=== PATIENT | female | born 1960 | race Caucasian/White ===

== ENCOUNTER 2018-08-22 09:18 | Inpatient (IN) ==
[2018-08-22 10:14] LABS: Basophils # 0.1 K/mcL (0.0-0.2); Basophils % 0.8 %; Eosinophils # 0.1 K/mcL (0.0-0.6); Eosinophils % 0.7 %; Hematocrit 45.3 % (35.3-44.9); Hemoglobin 15.2 g/dL (11.5-15.4); Immature Granulocytes % 0.8 % (0-4); Lymphocytes # 1.7 K/mcL (0.6-4.6); Lymphocytes % 10.7 %; Mean Corpuscular HGB Conc 33.6 g/dL (31.6-35.5); Mean Corpuscular Hemoglobin 32.3 pg (28.0-33.3); Mean Corpuscular Volume 96.2 fL (83.0-100.0); Mean Platelet Volume 9.8 fL (9.4-12.4); Monocytes # 0.7 K/mcL (0.0-1.3); Monocytes % 4.4 %; Neutrophils # 12.9 K/mcL (1.6-8.9); Platelet Count 265 K/mcL (140-400); Red Blood Count 4.71 M/mcL (3.82-4.97); Red Cell Distribution Width 13.5 % (11.5-14.5); Segmented Neutrophils % 82.6 %
[2018-08-22 10:36] LABS: BUN/Creatinine Ratio 24 (6-26); Blood Urea Nitrogen 22 mg/dL (6-20); Calcium 9.4 mg/dL (8.6-10.3); Carbon Dioxide 26 mEq/L (23-29); Chloride 107 mEq/L (98-107); Glucose 133 mg/dL (70-105); Magnesium 2.1 mg/dL (1.6-2.6); Osmolality,Calculated 291 (280-300); Potassium 4.1 mEq/L (3.5-5.1); Sodium 138 mEq/L (136-145); eGFR For Non-African Americans > 60 (> 60)
[2018-08-22 10:37] LABS: Troponin I < 0.03 ng/mL (< 0.04)
--- NOTE | 2018-08-22 10:42 | Emergency Department Note ---
Disposition Clinical Impression: Left-sided weakness, History of CVA (cerebrovascular accident), Weakness, Diplopia Disposition: Admitted As Inpatient Condition: Fair Time of Disposition: 14:37 Neuro HPI - General Chief Complaint: ED Neuro Symptoms/Deficit Stated Complaint: weakness Time Seen by Provider: 08/22/18 09:26 Source: patient Mode of arrival: ambulatory Limitations: no limitations Nursing Notes Reviewed: Yes Vital Signs Reviewed: Yes - History of Present Illness HPI Narrative: 57-year-old female process the emergency department complaining of left-sided numbness and weakness that comes and goes as well as diplopia that comes and goes. She also noticed that she seems to be walking to the right whenever she is walking which is new. Said all this started about 2 days ago and is coming and going randomly. There is no noticeable times at this is worse. She says at this time the numbness seems completely resolved as well as the weakness and the diplopia is completely resolved. She says the diplopia seems like she seeing double but then will go away it only occurs for about one or 2 minutes then completely goes away. Her vision is normal and not blurry otherwise. She was seen her primary care physician who recommended she come here immediately due to the weakness and her history. Patient says she did have a stroke in the previous but had no deficits and has been well ever since. Patient is not diabetic she has had a heart attack back in had a stent placed had no problems since then. Only takes a baby aspirin otherwise no other recent falls or blood thinner use. Patient otherwise having no complaints at this time. Including no headache, blurry vision, neck pain, back pain, fever, chills, nausea, vomiting, chest pain, short of breath, abdominal pain, changes in balance, pain with urination, loss of bladder or bowel, pain or tingling going down the arms or legs or generalized weakness. - Related Data Home Medications: Home Medications Medication Instructions Recorded Confirmed RX: ARIPiprazole [Abilify] 5 mg PO DAILY 06/07/15 06/07/15 RX: Aspirin/Acetaminophen/Caffeine 1 each PO Q4H PRN 06/07/15 06/07/15 [Excedrin Extra Strength Caplet] RX: Duloxetine HCl [Cymbalta] 60 mg PO DAILY 06/07/15 06/07/15 RX: Gabapentin [Neurontin] 900 mg PO TID 06/07/15 06/07/15 RX: Levothyroxine [Synthroid] 125 mcg PO DAILY 06/07/15 06/07/15 RX: Propranolol LA (24 HR) 60 mg PO DAILY PRN 06/07/15 06/07/15 [Inderal LA] RX: Temazepam [Restoril] 15 mg PO HS PRN 06/07/15 06/07/15 RX: Verapamil ER (24 HR) [Calan SR] 240 mg PO DAILY 06/07/15 06/07/15 Previous Rx's Medication Instructions Recorded Oxycodone HCl/Acetaminophen 1 each PO Q4H PRN #20 tablet 06/07/15 [Percocet 5-325 mg Tablet] Allergies/Adverse Reactions: Allergies Allergy/AdvReac Type Severity Reaction Status Date / Time No Known Allergies Allergy Verified 06/07/15 13:21 All systems ED: reviewed and negative except as stated. Review of Systems: As Per HPI Past Medical History - Past Medical History Attestation: Yes The following information was validated with the patient. Source: patient Medical history: Reports: hypertension, migraine, thyroid disease Surgical history: Reports: hysterectomy, thyroidectomy Psychiatric history: Reports: depression HOT BOX CHECKER history: Reports: no HOT BOX CHECKER history - Social History Smoking Status: Current every day smoker Smokeless Tobacco Status: No Alcohol use: Reports: none Drug use: Reports: none Physical Exam - General Limitations: no limitations General appearance: alert, in no apparent distress - Head Head exam: atraumatic, normocephalic, normal inspection - Eye Eye exam: Present: normal appearance, PERRL, EOMI - ENT ENT exam: normal exam, normal oropharynx, mucous membranes moist - Neck Neck exam: Present: normal inspection, full ROM, trachea midline - Chest Chest inspection: Present: normal inspection, symmetric chest wall rise - Respiratory Respiratory exam: Present: normal lung sounds bilaterally - Cardiovascular Cardiovascular exam: Present: regular rate, normal rhythm, normal heart sounds - Abdominal Exam Abdominal exam: Present: soft, Non-Tender. Absent: tenderness, distention, guarding, rebound, rigidity - Extremities Exam Extremities exam: Present: normal inspection, full ROM. Absent: tenderness, pedal edema - Expanded Lower Extremity Exam Neurovascular/Tendon exam: Present: normal capillary refill. Absent: pulse deficit, motor deficit, sensory deficit, tendon deficit - Back Exam Back exam: Present: normal inspection, full ROM. Absent: tenderness, CVA tenderness (R), CVA tenderness (L) - Neurological Exam Neurological exam: Present: alert, oriented X3 - Skin Skin exam: Present: warm, dry, intact, normal color Course Course Narrative: Patient here with weakness complaints. On exam there is no acute findings no neurological weaknesses NIH scale is 0 at this time. She has no complete or pain or weakness at this time diplopia is completely resolved as well. 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 We will get CT of the head as well as give patient aspirin and get basic labs including CBC, BMP, magnesium, chest x-ray and EKG. Patient okay with this plan. Disposition most likely will be admission for further evaluation. Vital Signs Temperature 98.5 F 08/22/18 09:20 Pulse Rate 62 08/22/18 09:20 Respiratory Rate 16 08/22/18 09:20 Blood Pressure 157/101 08/22/18 09:20 O2 Sat by Pulse Oximetry 97 08/22/18 09:20 Temperature 98.5 F 08/22/18 09:26 Pulse Rate 62 08/22/18 09:26 Respiratory Rate 16 08/22/18 12:58 Blood Pressure 150/98 08/22/18 12:58 O2 Sat by Pulse Oximetry 97 08/22/18 09:26 Oxygen Delivery Oxygen Delivery Room Air Neuro Symptoms/Deficit - MDM Narrative Medical decision making narrative: Patient presented here with neurological symptoms NIH was 0. On exam. Patient did have some weakness along the left side this all resolved when on for 2 days so an acute stroke was not fall called at this time. We did not do a stroke alert. Patient did have CT scan of the head done which came back with no acute abnormalities. After looking at her chart previously she did have history of hemorrhagic stroke so we did consult with neurology they recommended doing MR of the head as well as MRA of the neck. And they also recommended aspirin and admission. I spoke with the hospitalist Dr. Sharma who agreed to admit the patient to their service. Patient's admitted in stable condition. All labs otherwise were within normal limits family updated okay with the plan. Head CT 08/22/18 09:48 IMPRESSION: No acute intracranial abnormality. Stable small-vessel disease ischemic changes which was previously seen. D/ / 08/22/2018 11:00:59 Jennifer Palmer MD / [facility] Interpreting Provider: Jennifer Palmer MD Chest X-Ray 08/22/18 09:49 IMPRESSION: Negative portable chest x-ray. No evidence of acute cardiopulmonary disease. D/ / Luis Kenney MD / Luis Kenney MD Interpreting Provider: Luis Kenney MD - Medical Records Medical records reviewed: Yes I reviewed the patient's medical records. - Lab Data Lab results reviewed: Yes I reviewed the patient's lab results. Result diagrams: 08/22/18 10:04 08/22/18 10:04 Lab Results 08/22/18 08/22/18 08/22/18 Range/Units 10:04 10:04 11:08 WBC 15.6 H (4.3-11.1) K/mcL RBC 4.71 (3.82-4.97) M/mcL Hgb 15.2 (11.5-15.4) g/dL Hct 45.3 H (35.3-44.9) % MCV 96.2 (83.0-100.0) fL MCH 32.3 (28.0-33.3) pg MCHC 33.6 (31.6-35.5) g/dL RDW 13.5 (11.5-14.5) % Plt Count 265 (140-400) K/mcL MPV 9.8 (9.4-12.4) fL Immature Gran % 0.8 (0-4) % Seg Neutrophils % 82.6 % Lymphocytes % 10.7 % Monocytes % 4.4 % Eosinophils % 0.7 % Basophils % 0.8 % Neutrophils # 12.9 H (1.6-8.9) K/mcL Lymphocytes # 1.7 (0.6-4.6) K/mcL Monocytes # 0.7 (0.0-1.3) K/mcL Eosinophils # 0.1 (0.0-0.6) K/mcL Basophils # 0.1 (0.0-0.2) K/mcL Sodium 138 (136-145) mEq/L Potassium 4.1 (3.5-5.1) mEq/L Chloride 107 (98-107) mEq/L Carbon Dioxide 26 (23-29) mEq/L BUN 22 H (6-20) mg/dL Creatinine 0.90 (0.60-1.20) mg/dL Est GFR ( Amer) > 60 (> 60) Est GFR (Non-Af Amer) > 60 (> 60) BUN/Creatinine Ratio 24 (6-26) Glucose 133 H (70-105) mg/dL Calculated Osmolality 291 (280-300) Calcium 9.4 (8.6-10.3) mg/dL Magnesium 2.1 (1.6-2.6) mg/dL Troponin I < 0.03 (< 0.04) ng/mL Urine Color Yellow (Yellow) Urine Clarity Clear (Clear) Urine pH 7.5 (5.0-8.0) pH Units Ur Specific [place] 1.025 (1.010-1.025) Urine Protein Trace (Neg-Trace) mg/dL Urine Glucose (UA) Normal (Normal) mg/dL Urine Ketones Negative (Negative) mg/dL Urine Blood Negative (Negative) Urine Nitrite Negative (Negative) Urine Bilirubin Negative (Negative) Urine Urobilinogen Normal (Normal) mg/dL Ur Leukocyte Esterase Negative (Negative) Urine Microscopic RBC 0-3 (0-3) per hpf Urine Microscopic WBC 0-3 (0-3) per hpf Ur Squamous Epith Cells Many H (None-Few) per lpf Urine Bacteria Few (None-Few) per hpf Hyaline Casts None Seen (None-Few) per lpf Ur Culture Indicated? NO (NO) - Radiology Data Radiology results reviewed: Yes I reviewed the patient's radiology results. - EKG Data EKG attestation: Yes I reviewed and interpreted this EKG. EKG results narrative: EKG done at 0 929 review myself and attending shows sinus rhythm at a rate of 60, NJ interval 174, QRS 104, QTc 425. Is no acute ST changes no acute T-wave changes no other signs of ischemia. No signs of hypertrophy, heart and, heart block. No W BW/Brugada/HOCM. EKG is unchanged when compared with old one done 08/22/18. NIH Stroke Scale - Level of Consciousness LOC: Alert - LOC Questions LOC Questions: Answers both correctly - LOC Commands LOC Commands: Performs both correctly - Best Gaze Best Gaze: Normal - Visual Visual: No visual loss - Facial Palsy Facial Palsy: Normal - Motor Arms Motor Arm-Left: No drift for 10 seconds Motor Arm-Right: No drift for 10 seconds - Motor Legs Motor Leg-Left: No drift for 5 seconds Motor Leg-Right: No drift for 5 seconds - Limb Ataxia Limb Ataxia: Absent of affected limb too weak to perform exam - Sensory Sensory: Normal - Best Language Best Language: No aphasia - Dysarthria Dysarthria: Normal - Extinction and Inattention Extinction and Inattention: Normal - NIHSS Total Score NIHSS Total Score: 0 TPA Checklist - LKW: 3-4.5 hrs Add. Warnings/Precautions Patient/family understanding: The patient/family members have been counseled and understood the risk, benefit, and alternatives of treatment.
[2018-08-22 11:23] LABS: Bilirubin,Urine Negative (Negative); Blood,Urine Negative (Negative); Clarity,Urine Clear (Clear); Color,Urine Yellow (Yellow); Glucose,Urine (UA) Normal (Normal); Ketones,Urine Negative (Negative); Leukocyte Esterase,Urine Negative (Negative); Nitrite,Urine Negative (Negative); PH,Urine 7.5 pH Units (5.0-8.0); Protein,Urine Trace mg/dL (Neg-Trace); Specific Gravity,Urine 1.025 (1.010-1.025); Urobilinogen,Urine Normal (Normal)
[2018-08-22 11:49] LABS: Bacteria,Urine Few per hpf (None-Few); Hyaline Casts,Urine None Seen per lpf (None-Few); RBC,Urine 0-3 per hpf (0-3); Squamous Epithelial Cell,Urine Many per lpf (None-Few); WBC,Urine 0-3 per hpf (0-3)
[2018-08-22] MEDS ORDERED: Aspirin 325 MG TABLET PO ONE (11:57)
--- NOTE | 2018-08-22 12:26 | Neurology - Consult Note ---
Date of Encounter: 08/22/18 Time of Encounter: 12:23 Assessment and Plan (1) Diplopia Current Visit: Yes Status: Acute This patient apparently had a history of hemorrhagic stroke in the past without any residual deficit Came in for 2-3 days history of double vision as well as right arm numbness and paresthesias as well as difficulty with the walking and difficulty with a gait and balance. No significant focal findings on neurological examination today but certainly is a possibility that she could have a new lacunar infarct. Patient would require stroke workup including MRI of the brain but at the same time also suggest getting an MRA of the head and neck to make sure there is no posterior circulation stenosis At the same time she would be on aspirin 325 mg daily depending on MRI results and make further recommendations certainly she would need all stroke workup including echocardiogram as well as at the same time continue to monitor her bl ood pressure and blood sugar She would also benefit from physical therapy recommendations Considering this new onset of the symptoms also suggested check for other metabolic abnormalities in particularly for vitamin B12 folate acid as well as thyroid dysfunction and other metabolic panel to make sure there is no other metabolic etiologies of her symptoms (2) History of CVA (cerebrovascular accident) Current Visit: Yes Status: Acute History of Present Illness HPI: Ms. Osullivan is a 57 year old female 57-year-old female process the emergency department complaining of left-sided numbness and weakness that comes and goes as well as diplopia that comes and goes. She also noticed that she seems to be walking to the right whenever she is walking which is new. Said all this started about 2 days ago and is coming and going randomly. There is no noticeable times at this is worse. She says at this time the numbness seems completely resolved as well as the weakness and the diplopia is completely resolved. She says the diplopia seems like she seeing double but then will go away it only occurs for about one or 2 minutes then completely goes away. Her vision is normal and not blurry otherwise. She was seen her primary care physician who recommended she come here immediately due to the weakness and her history. Patient says she did have a stroke in the previous but had no deficits and has been well ever since. Patient is not diabetic she has had a heart attack back in had a stent placed had no problems since then. Past Med Surg Social Fam HX - Past Medical History Medical history: hypertension, migraine, thyroid disease Psychiatric history: depression - Past Surgical History Surgical History: hysterectomy, thyroidectomy Additional surgical history: Cardioangioplasty, bladder sling - Social History Smoking Status: Current every day smoker Smokeless Tobacco Status: No Alcohol use: none Drug use: none - Family History Mother Living Status: Age at : 74 Cause of : Cancer Hx Family Cardiac Disorders: Yes Hx Family Cancer: Yes (Lung, throat) Medications and Allergies Acetaminophen [Tylenol] 650 mg PO BID PRN 08/22/18 [History] Amitriptyline [Elavil] 25 mg PO HS 08/22/18 [History] Duloxetine HCl [Cymbalta] 60 mg PO DAILY 08/22/18 [History] Levothyroxine Sodium [Levo-T] 50 mcg PO DAILY 08/22/18 [History] Metoprolol Tartrate 100 mg PO BID 08/22/18 [History] Naproxen [Naprosyn] 750 mg PO QID PRN 08/22/18 [History] Verapamil ER (24 HR) [Calan SR] 240 mg PO DAILY 08/22/18 [History] Allergy/AdvReac Type Severity Reaction Status Date / Time No Known Allergies Allergy Verified 08/22/18 15:34 All Systems: The remainder of the systems were reviewed and are negative Physical Examination - Vital Signs Vital Signs: Initial Vital Signs Temp Pulse Resp BP Pulse Ox 98.5 F 62 16 157/101 97 08/22/18 09:20 08/22/18 09:20 08/22/18 09:20 08/22/18 09:20 08/22/18 09:20 - Exam Exam: GENERAL: Comfortable in no acute distress HEENT: Normal LUNGS: CTA HEART: RRR, S1 S2 Audible, no murmur EXTREMITIES: No Pedal edema. DETAILED NEUROLOGICAL EXAMINATION: MENTAL STATUS: Oriented to person, place, date and situation. Memory: knows the President, Aware of recent events Recent Memory Intact, Attention span is normal Cranial Nerve Examination: CN - II: Visual Acuity, Field of Vision Normal, Fundus examination: No disk edema, Pupils- size shape reaction to light and accommodation: All normal. CN III, IV, : External ocular movements were intact, Pupils were reactive, Nodrooping of the eyelids CN V: Sensation over the face to light touch and pinprick all normal. Corneal reflexes not tested, jaw jerk normal. CN VII: ,Mild l=right facial asymmetry, no flattening of nasolabial folds, no difficulty in closing the eyes, no loss of forehead wrinkles, no difficulty in eye- closure, frowning raising eyebrows. CNVIII: No significant hearing loss CN IX, X: Uvula centralized not deviated, Gag reflex: Not tested CN X1: Sternocleidomastoid, trapezius, normal or evidence of any weakness. CN X11: No Dysarthria, no wasting or fibrilation f tongue muscles, no deviation, tongue muscle strength normal. Motor examination: No hypertrophy, tone was normal, power grade 0-5 Upper limbs Proximal- No difficulty in lifting the arms above the head. Distal- No weakness in distal muscles On formal testing 4/4right upper Lower limbs On formal testing 4/4right lower r Coordination: [id number] normal. Target pursuit normal finger tapping normal, Rapid alternating moment of wrist normal Sensory system: Superficial sensations- Touch normal. Pain- Pinprick, Temperature all normal, Deep sensation normal, Joint position sense normal. Cortical sensation, Tactile discrimination, localization and extinction all normal. Deep tendon reflexes. low on right No evidence of Babinski. No sign of meningeal irritation Gait Examination: Deferred - Constitutional General appearance: comfortable Results - Laboratory Findings CBC and BMP: 08/23/18 04:05 08/23/18 04:05 Abnormal lab findings: Abnormal lab results WBC 15.6 K/mcL (4.3-11.1) H 08/22/18 10:04 Hct 45.3 % (35.3-44.9) H 08/22/18 10:04 Neutrophils # 12.9 K/mcL (1.6-8.9) H 08/22/18 10:04 BUN 22 mg/dL (6-20) H 08/22/18 10:04 Glucose 133 mg/dL (70-105) H 08/22/18 10:04 Ur Squamous Epith Cells Many per lpf (None-Few) H 08/22/18 11:08 Consult Discharge Plan - Plan Referrals: Ludy Bain SEWING MACHINE OPERATOR [employer]UT[employer] [Primary Care Provider] - 08/27/18 10:30 am
[2018-08-22] MEDS ORDERED: Acetaminophen 325 MG TABLET PO PRN (14:07)
[2018-08-22] MEDS ORDERED: Naloxone 0.4 MG/ML INJ IVP PRN (14:07)
[2018-08-22] MEDS ORDERED: *HR* LORazepam 0.5 MG TABLET PO ONE (14:28)
[2018-08-22 14:44] LABS: Prothrombin Time 11.2 Seconds (9.4-12.1)
--- NOTE | 2018-08-22 15:44 | Internal Med History&Physical ---
Date of Encounter: 08/22/18 Time of Encounter: 14:00 Internal Medicine - H&P: HPI Chief complaint: diplopia Admitted From: Home Plans for Post Hospital Care: Home History of present illness: Ms. Osullivan is a 57 year old female with history of hypertension, migraine, hypothyroidism and history of hemorrhagic stroke in the past without any residual deficit presented o [facility] ED with double vision. she reports that her double vision started jamarcus day before admission but she went to sleep as she thought it was due to being tired however woke up the next morning adn decided to come to the ED. she reports that her double vision has remained constant, not associated with dizziness, vision loss, N/V. she denies recent eye trauma or head trauma. has never had symptoms like this before. she also reports difficulty walking, right arm numbness and paresthesia since 2 days before admission. family at bedside also reports that they noticed a right sided facial droop and slurred speech. she denies fever, chills, recent URTI, falls, headache, N/v/d, loss of function in her extremities. in [facility] ED Ct head did not show any acute stroke, she was given ASA 325 mg and neurology was consulted and was admitted to medicine for further evaluation. Past Med Surg Social Fam HX - Past Medical History Medical history: hypertension, migraine, thyroid disease Psychiatric history: depression - Past Surgical History Surgical History: hysterectomy, thyroidectomy Additional surgical history: Hernia repair x 4. - Social History Smoking Status: Current every day smoker Packs per day: 1- 1 1/2 Smokeless Tobacco Status: No Alcohol use: none Drug use: none - Family History Mother Living Status: Age at : 74 Cause of : Cancer Hx Family Cardiac Disorders: Yes Hx Family Cancer: Yes (Lung, throat) Internal Medicine - H&P: Meds Acetaminophen [Tylenol] 650 mg PO BID PRN 08/22/18 [History] Amitriptyline [Elavil] 25 mg PO HS 08/22/18 [History] Duloxetine HCl [Cymbalta] 60 mg PO DAILY 08/22/18 [History] Levothyroxine Sodium [Levo-T] 50 mcg PO DAILY 08/22/18 [History] Metoprolol Tartrate 100 mg PO BID 08/22/18 [History] Naproxen [Naprosyn] 750 mg PO QID PRN 08/22/18 [History] Verapamil ER (24 HR) [Calan SR] 240 mg PO DAILY 08/22/18 [History] Allergy/AdvReac Type Severity Reaction Status Date / Time No Known Allergies Allergy Verified 08/22/18 15:34 All Systems PM: A 10-system review of systems was performed and is negative for pertinent findings except as documented above in the HPI. - Constitutional Vitals: Temp Pulse Resp BP Pulse Ox 98.5 F 62 16 150/98 97 08/22/18 09:26 08/22/18 09:26 08/22/18 12:58 08/22/18 12:58 08/22/18 09:26 Exam: General: Patient is alert, oriented, no acute distress, obese Head: atraumatic, normocephalic, Eye: normal appearance, PERRL, no scleral icterus, no conjunctival injection ENT: mucous membranes moist, normal external ear exam Neck: normal inspection, trachea midline, full ROM, no carotid bruits Chest: normal inspection, symmetric chest rise Respiratory: Good respiratory effort. Bilateral breath sounds are clear without wheezing, crackles, or rhonchi. Cardiovascular: Regular rate and rhythm. s1 and s2 No clicks, rubs, gallops, or murmors. Abdomen: Bowel sounds present normoactive x-4 quadrants. Abdomen is soft, n ondistended. no Epigastric tenderness. No guarding or rebound. No organomegaly noted, obese musculoskeletal: Spontaneously moving all extremities. no edema, no calf tenderness Skin: warm, dry, intact. Neuro: Alert and oriented x3, strength is 5/5 in all extremities, pronator drift negative, mild slurred speech, heel to chin intact, rapid hand movement intact, tongue midline, coud not appreciate facial droop. Psych: Patient's affect is normal Internal Med - H&P Results - Labs CBC & Chem 7: 08/22/18 10:04 08/22/18 10:04 Labs: Short CBC 08/22/18 Range/Units 10:04 WBC 15.6 H (4.3-11.1) K/mcL Hgb 15.2 (11.5-15.4) g/dL Hct 45.3 H (35.3-44.9) % Plt Count 265 (140-400) K/mcL Neutrophils # 12.9 H (1.6-8.9) K/mcL BMP 08/22/18 10:04 Sodium 138 Potassium 4.1 Chloride 107 Carbon Dioxide 26 BUN 22 H Creatinine 0.90 Glucose 133 H Calcium 9.4 Cardiac Enzymes 08/22/18 Range/Units 10:04 Troponin I < 0.03 (< 0.04) ng/mL Urine 08/22/18 Range/Units 11:08 Urine Color Yellow (Yellow) Urine Clarity Clear (Clear) Urine pH 7.5 (5.0-8.0) pH Units Ur Specific [place] 1.025 (1.010-1.025) Urine Protein Trace (Neg-Trace) mg/dL Urine Glucose (UA) Normal (Normal) mg/dL - EKG Data -: EKG Interpreted by Myself (was unable to locate admission EKG - will obtain new one ) - Impressions ITS Impressions Head CT 08/22/18 09:48 IMPRESSION: No acute intracranial abnormality. Stable small-vessel disease ischemic changes which was previously seen. D/ / 08/22/2018 11:00:59 Jennifer Palmer MD / [facility] [place] Interpreting Provider: Jennifer Palmer MD Chest X-Ray 08/22/18 09:49 IMPRESSION: Negative portable chest x-ray. No evidence of acute cardiopulmonary disease. D/ / Luis Kenney MD / Luis Kenney MD Interpreting Provider: Luis Kenney MD - Assessment and plan (1) Diplopia Current Visit: Yes Status: Acute Assessment and plan: ? secondary to CVA neurology on board will follow recs received ASA 325 mg in the ED will follow neurology recs on continuing ASA 325 mg post MRI lipitor 80 mg QHS MRI head and MRA head and neck ordered will follow results TTE with bubble study carotid doppler lipid panel, TSH and A1c in AM Neuro checks as per protocol Keep systolic BP <220 and diastolic BP <120 mmHg Maintain LDL less than 75 PT/OT evaluation fall aspiration seizure precautions tele monitoring DVT prophylaxis (2) Hypothyroidism Current Visit: Yes Status: Acute Assessment and plan: continue home synthroid TSH in AM Qualifiers: Hypothyroidism type: acquired Qualified Code(s): E03.9 - Hypothyroidism, unspecified (3) History of CVA (cerebrovascular accident) Current Visit: Yes Status: Acute Assessment and plan: as per patient she has had hemorrhagic stroke in the past without any residual deficit CT head negative for any acute ICH (4) DVT prophylaxis Current Visit: Yes Status: Acute Assessment and plan: heparin sc - Time Spent With Patient Total time spent is greater than 50% in coordination of care (as documented) at patient's floor/unit and/or counseling patient:
[2018-08-22] MEDS: *HR* Heparin 5,000 UNIT/ML VIAL SQ SCH ×2 (17:35→22:51)
[2018-08-22 19:16] LABS: Amphetamine Screen,Urine Negative ng/mL (Cutoff=1000); Barbiturate Screen,Urine Negative ng/mL (Cutoff=200); Benzodiazepines Screen,Urine Negative ng/mL (Cutoff=200); Cannabinoid Screen,Urine Negative ng/mL (Cutoff = 50); Cocaine Screen,Urine Negative ng/mL (Cutoff= 300); Opiate Screen,Urine Negative ng/mL (Cutoff=300); Phencyclidine Screen,Urine Negative ng/mL (Cutoff=25)
[2018-08-22] MEDS: Metoprolol 100 MG TABLET PO SCH (19:53)
--- NOTE | 2018-08-22 23:49 | Event Note ---
Date of Encounter: 08/22/18 Time of Encounter: 22:50 Alerted by patient's nurse SULEMAN Martinez that patient's MRI results came back and patient and family were requesting the results. MRI showed volume loss with mild chronic white matter microvascular ischemic disease characterized by periventricular white matter signal abnormality. There is a remote infarct within the right occipital-temporal lobe. There is also an acute lacunar infarct within the left medullary on image #7 of series 2. Due to complexity of the MRI results, I did not feel comfortable discussing results with patient and family and alerted the nurse that Neurology should cover these MRI results with the patient and her family and make further recommendations based on them in the a.m. Nurse instructed to monitor pt. and alert me of any adverse changes.
[2018-08-23 04:57] LABS: Basophils # 0.1 K/mcL (0.0-0.2); Eosinophils # 0.2 K/mcL (0.0-0.6); Eosinophils % 2.1 %; Hematocrit 45.4 % (35.3-44.9); Hemoglobin 14.9 g/dL (11.5-15.4); Immature Granulocytes % 0.5 % (0-4); Lymphocytes # 2.5 K/mcL (0.6-4.6); Lymphocytes % 25.1 %; Mean Corpuscular HGB Conc 32.8 g/dL (31.6-35.5); Mean Corpuscular Volume 97.4 fL (83.0-100.0); Mean Platelet Volume 10.1 fL (9.4-12.4); Monocytes # 0.7 K/mcL (0.0-1.3); Monocytes % 7.1 %; Neutrophils # 6.5 K/mcL (1.6-8.9); Platelet Count 243 K/mcL (140-400); Red Blood Count 4.66 M/mcL (3.82-4.97); Red Cell Distribution Width 13.7 % (11.5-14.5); Segmented Neutrophils % 64.2 %
[2018-08-23 05:17] LABS: BUN/Creatinine Ratio 23 (6-26); Blood Urea Nitrogen 21 mg/dL (6-20); Calcium 9.3 mg/dL (8.6-10.3); Carbon Dioxide 24 mEq/L (23-29); Chloride 107 mEq/L (98-107); Chol/HDL Ratio 7.2 (0-4.9); Cholesterol 272 mg/dL (< 200); Glucose 103 mg/dL (70-105); HDL Cholesterol 38 mg/dL (40-59); LDL Cholesterol,Calculated 195 mg/dL (0-99); Osmolality,Calculated 291 (280-300); Phosphorous 3.2 mg/dL (2.7-4.5); Potassium 3.8 mEq/L (3.5-5.1); Sodium 139 mEq/L (136-145); Triglycerides 195 mg/dL (< 150); eGFR For Non-African Americans > 60 (> 60)
--- NOTE | 2018-08-23 05:23 | Electrocardiograph Report ---
[facility] Test Date: 2018-08-22 Pat Name: Jessica Osullivan Department: [id number] Room: 3B43 Gender: F Nurse [facility] Care: : 1960 Requested By: Bill Osorio Order Number: [id number] Reading MD: Denver Chacko Measurements Intervals [place] Rate: 60 P: 59 NE: 174 QRS: 61 QRSD: 104 T: -79 QT: 425 QTc: 425 Interpretive Statements Sinus rhythm Electronically Signed On 08-23-2018 5:22:17 EST by Denver Chacko
[2018-08-23] MEDS: *HR* Heparin 5,000 UNIT/ML VIAL SQ SCH ×3 (05:58→21:02)
[2018-08-23 08:30] LABS: Estimated Average Glucose 123 mg/dl; Hemoglobin A1C 5.9 %
[2018-08-23] MEDS: Verapamil ER (24 HR) 240 MG TABLET.ER PO SCH (09:06)
[2018-08-23] MEDS: Aspirin 325 MG TABLET PO SCH (09:06)
--- NOTE | 2018-08-23 10:54 | Internal Med Progress Note ---
Hospitalist Progress Note - Encounter Date of Encounter: 08/23/18 Time of Encounter: 08:00 - Subjective Interval History: patient was seen and examiend at bedside. has no complaints, tolerating PO diet. pain is controlled. no overnight events. I discussed MRI findings with the patient and she understands. I discussed elevated TSH and the need to increase her Synthroid. I discussed proper way of taking her Synthroid. denies fever, chills, N/V/D, chest pain, SOB or palpitations. - Exam Vitals: Temp Pulse Resp BP Pulse Ox 97.7 F 58 16 154/91 96 08/23/18 05:52 08/23/18 05:52 08/23/18 05:52 08/23/18 05:52 08/23/18 02:59 Exam: General: Patient is alert, oriented, no acute distress, obese Head: atraumatic, normocephalic, Eye: normal appearance, PERRL, no scleral icterus, no conjunctival injection ENT: mucous membranes moist, normal external ear exam Neck: normal inspection, trachea midline, full ROM, no carotid bruits Chest: normal inspection, symmetric chest rise Respiratory: Good respiratory effort. Bilateral breath sounds are clear without wheezing, crackles, or rhonchi. Cardiovascular: Regular rate and rhythm. s1 and s2 No clicks, rubs, gallops, or murmors. Abdomen: Bowel sounds present normoactive x-4 quadrants. Abdomen is soft, nondistended. no Epigastric tenderness. No guarding or rebound. No organomegaly noted, obese musculoskeletal: Spontaneously moving all extremities. no edema, no calf tenderness Skin: warm, dry, intact. Neuro: Alert and oriented x3 pronator drift negative, mild slurred speech, heel to chin intact, rapid hand movement intact, tongue midline, could not appreciate facial droop. Psych: Patient's affect is normal - Assessment and Plan (1) Acute lacunar stroke Current Visit: Yes Status: Acute Assessment and Plan: Acute lacunar infarct within the left medullary pyramid. neurology on board will follow recs received ASA 325 mg in the ED will continue aspirin 325 mg daily as per neurology recommendationsdiscussed with Dr. Boy renaeitor 80 mg QHS MRI head and MRA head and neck- reviewed showing acute lacunar infarct within the left medullary. TTE with bubble study pending results carotid doppler pending Lipid panel, TSH, A1c reviewed will adjust medications Neuro checks as per protocol Keep systolic BP <220 and diastolic BP <120 mmHg Maintain LDL less than 75 PT/OT evaluation fall aspiration seizure precautions tele monitoring DVT prophylaxis (2) Diplopia Current Visit: Yes Status: Acute Assessment and Plan: ? secondary to CVA neurology on board will follow recs Regimen as above To have formal ophthalmology evaluation as outpatient (3) Hypothyroidism Current Visit: Yes Status: Acute Assessment and Plan: TSH elevated 79.1 Synthroid dose increased to 88 g for PCP to follow TFTs in 4 weeks and adjust (4) History of CVA (cerebrovascular accident) Current Visit: Yes Status: Acute Assessment and Plan: as per patient she has had hemorrhagic stroke in the past without any residual deficit CT head negative for any acute ICH (5) Obesity (BMI 30-39.9) Current Visit: Yes Status: Acute Assessment and Plan: was counseled on diet and nutrition along with exercise. (6) Tobacco abuse disorder Current Visit: Yes Status: Acute Assessment and Plan: Was counseled (7) DVT prophylaxis Current Visit: Yes Status: Acute Assessment and Plan: heparin sc - Time Spent with Patient Total time spent is greater than 50% in coordination of care (as documented) at patient's floor/unit and/or counseling patient: Internal Medicine: Result - Labs CBC & Chem 7: 08/23/18 04:05 08/23/18 04:05 Labs: Short CBC 08/23/18 Range/Units 04:05 WBC 10.1 (4.3-11.1) K/mcL Hgb 14.9 (11.5-15.4) g/dL Hct 45.4 H (35.3-44.9) % Plt Count 243 (140-400) K/mcL Neutrophils # 6.5 (1.6-8.9) K/mcL BMP 08/23/18 04:05 Sodium 139 Potassium 3.8 Chloride 107 Carbon Dioxide 24 BUN 21 H Creatinine 0.90 Glucose 103 Calcium 9.3 Urine 08/22/18 Range/Units 11:08 Urine Color Yellow (Yellow) Urine Clarity Clear (Clear) Urine pH 7.5 (5.0-8.0) pH Units Ur Specific [place] 1.025 (1.010-1.025) Urine Protein Trace (Neg-Trace) mg/dL Urine Glucose (UA) Normal (Normal) mg/dL - ABG Interpretation ABG results: PT/INR, D-dimer PT 11.2 Seconds (9.4-12.1) 08/22/18 14:18 - Impressions Impressions Head CT 08/22/18 09:48 IMPRESSION: No acute intracranial abnormality. Stable small-vessel disease ischemic changes which was previously seen. D/ / 08/22/2018 11:00:59 Jennifer Palmer MD / stacy Interpreting Provider: Jennifer Palmer MD Brain MRI 08/22/18 14:03 IMPRESSION: Acute lacunar infarct within the left medullary pyramid. Limited MRA of the brain. The findings were sent to the Radiology Results Communication Center at 5:44 pm on 08/22/2018to be communicated to a licensed caregiver.. D/ / Lucas Leung MD / Lucas Leung MD Interpreting Provider: Lucas Leung MD Head MRA 08/22/18 14:03 IMPRESSION: Acute lacunar infarct within the left medullary pyramid. Limited MRA of the brain. The findings were sent to the Radiology Results Communication Center at 5:44 pm on 08/22/2018to be communicated to a licensed caregiver.. D/ / Lucas Leung MD / Lucas Leung MD Interpreting Provider: Lucas Leung MD Neck MRA 08/22/18 14:03 IMPRESSION: No significant abnormality of the neck vessels. D/ / 08/22/2018 17:55:10 Ros[facility] Su[facility]rez MD / [facility] Provider: Rosario Suárez MD Consult Discharge Plan - Plan Referrals: Ludy Bain CNP [Primary Care Provider] - 08/27/18 10:30 am (3) Hypothyroidism Qualifiers: Hypothyroidism type: acquired Qualified Code(s): E03.9 - Hypothyroidism, unspecified
--- NOTE | 2018-08-23 15:10 | Neurology Progress Note ---
Date of Encounter: 08/23/18 Time of Encounter: 15:07 Assessment and Plan (1) Acute CVA (cerebrovascular accident) Current Visit: Yes Status: Acute This patient was admitted with right sided symptoms predominantly mild motor weakness found to have an acute infarct in the left medullary area without any evidence of bleed. So far her workup including MRA of the neck is negative for any intra-or extracranial stenosis echocardiogram was limited but did not show any large clot or any other obvious abnormalities. Patient was not on any antiplatelet therapy at home currently on aspirin 325 mg suggested to continue along with statin Continue to monitor the blood pressure and blood sugar as well as for any cardiac arrhythmias She is getting PT/OT will follow the recommendations regarding her placement options as she may need a short-term rehabilitation In particularly for gait and balance training Clinically from neurology standpoint patient is stable okay to be transferred discharge (2) Diplopia Current Visit: Yes Status: Acute (3) History of CVA (cerebrovascular accident) Current Visit: Yes Status: Acute Subjective Interval history: Patient seemed to be doing better she denies any other new symptoms or any other new problems she thinks her right-sided weakness is slightly improved MRI is positive for left medullary infarct Objective - Constitutional Vitals: Temp Pulse Resp BP Pulse Ox 98.1 F 68 16 168/92 97 08/23/18 11:49 08/23/18 11:49 08/23/18 11:49 08/23/18 11:49 08/23/18 11:49 - Neurological Exam Motor Examination: Present: grossly full strength in all extremities Motor examination - right side: 4/5: deltoids, biceps, triceps, wrist flexion, wrist extension, field technician, hip flexors, tibialis Anterior, quadriceps, toe extension (EHL), plantarflexion Motor examination - left side: 5/5: deltoids, biceps, triceps, wrist flexion, wrist extension, hip flexors, field technician, quadriceps, tibialis Anterior, toe extension (EHL), plantarflexion Sensation intact: Present: intact Reflex and gait examination: intact Reflexes: Biceps: 1+, Triceps: 1+, Brachioradialis: 1+, Patella: 1+, Achilles: 1+ Mental Status Examination: Present: awake, alert, oriented to person, oriented to place, oriented to time, answers questions appropriately Cranial nerve examination: Present: PERRL, EOMI, visual mitchell intact, mastication intact, no facial asymmetry is present, no dysarthria Cerebellar examination: Present: no dysmetria Results - Laboratory Findings CBC and BMP: 08/23/18 04:05 08/23/18 04:05 Abnormal lab findings: Abnormal lab results Hct 45.4 % (35.3-44.9) H 08/23/18 04:05 BUN 21 mg/dL (6-20) H 08/23/18 04:05 POC Glucose 110 mg/dL (70-99) H 08/22/18 20:30 Hemoglobin A1c 5.9 % (-5.6) H 08/23/18 04:05 Triglycerides 195 mg/dL (< 150) H 08/23/18 04:05 Cholesterol 272 mg/dL (< 200) H 08/23/18 04:05 LDL Cholesterol, Calc 195 mg/dL (0-99) H 08/23/18 04:05 VLDL Cholesterol, Calc 39 mg/dL (< 31) H 08/23/18 04:05 HDL Cholesterol 38 mg/dL (40-59) L 08/23/18 04:05 Cholesterol/HDL Ratio 7.2 (0-4.9) H 08/23/18 04:05 TSH 79.190 mcIU/mL (0.340-5.600) H 08/23/18 04:05 Ur Squamous Epith Cells Many per lpf (None-Few) H 08/22/18 11:08 Consult Discharge Plan - Plan Referrals: Ludy Bain, [employer] [Primary Care Provider] - 08/27/18 10:30 am
[2018-08-23] MEDS: Metoprolol 100 MG TABLET PO SCH (21:02)
[2018-08-24] MEDS: *HR* Heparin 5,000 UNIT/ML VIAL SQ SCH ×3 (05:39→21:20)
[2018-08-24] MEDS: Verapamil ER (24 HR) 240 MG TABLET.ER PO SCH (07:26)
[2018-08-24] MEDS: Metoprolol 100 MG TABLET PO SCH ×2 (07:27→21:21)
[2018-08-24] MEDS: Aspirin 325 MG TABLET PO SCH (07:27)
[2018-08-24] MEDS ORDERED: Furosemide 20 MG/2 ML VIAL IVP ONE (09:38)
--- NOTE | 2018-08-24 10:23 | Internal Med Progress Note ---
Hospitalist Progress Note - Encounter Date of Encounter: 08/24/18 Time of Encounter: 09:39 - Subjective Interval History: patient was seen and examined at bedside. has no complaints, tolerating PO diet. pain is controlled. no overnight events. i discussed that her BP is elevated and will start her n medications and she agrees. pending placement to acute rehab- she would prefer [place] denies fever, chills, N/V/D, chest pain, SOB or palpitations, vision is at baseline, no headache . - Exam Vitals: Temp Pulse Resp BP Pulse Ox 976 F H 53 18 184/102 98 08/24/18 07:14 08/24/18 09:13 08/24/18 07:14 08/24/18 09:13 08/24/18 07:14 Exam: General: Patient is alert, oriented, no acute distress, obese Head: atraumatic, normocephalic, Eye: normal appearance, PERRL, no scleral icterus, no conjunctival injection ENT: mucous membranes moist, normal external ear exam Neck: normal inspection, trachea midline, full ROM, no carotid bruits Chest: normal inspection, symmetric chest rise Respiratory: Good respiratory effort. Bilateral breath sounds are clear without wheezing, crackles, or rhonchi. Cardiovascular: Regular rate and rhythm. s1 and s2 No clicks, rubs, gallops, or murmors. Abdomen: Bowel sounds present normoactive x-4 quadrants. Abdomen is soft, nond istended. no Epigastric tenderness. No guarding or rebound. No organomegaly noted, obese musculoskeletal: Spontaneously moving all extremities. no edema, no calf tenderness Skin: warm, dry, intact. Neuro: Alert and oriented x3 pronator drift negative, mild slurred speech, heel to chin intact, rapid hand movement intact, tongue midline, could not appreciate facial droop. has right foot drop strength in jamarcus RLE and RUE is 4/5 5/5 in the left extremities. Psych: Patient's affect is normal - Assessment and Plan (1) Acute lacunar stroke Current Visit: Yes Status: Acute Assessment and Plan: Acute lacunar infarct within the left medullary pyramid. neurology on board will follow recs received ASA 325 mg in the ED will continue aspirin 325 mg daily as per neurol ogy recommendationsdiscussed with Dr. Boy renaeitor 80 mg QHS losartan added for better BP control MRI head and MRA head and neck- reviewed showing acute lacunar infarct within the left medullary. TTE with bubble study reviewed- discussed with Dr. Brunson no need for carotid doppler- reviewed. Lipid panel, TSH, A1c reviewed will adjust medications Neuro checks as per protocol Keep systolic BP <220 and diastolic BP <120 mmHg Maintain LDL less than 75 PT/OT evaluation fall aspiration seizure precautions tele monitoring DVT prophylaxis TTE: Impressions: Technically sub-optimal due to poor echocardiographic windows. LVEF 55%. Normal LV chamber size, wall thickness and function. Mild left ventricular diastolic dysfunction. Normal right ventricular structure and function. Interatrial septum not well evaluated. Saline contrast not optimal in this study. Consider FERNANDA if no contraindications. No significant valvular dysfunction. Unable to estimate RVSP due to lack of TR jet. carotid doppler: Findings: Bilateral carotid system has nonstenotic plaque. (2) Diplopia Current Visit: Yes Status: Acute Assessment and Plan: ? secondary to CVA neurology on board will follow recs Regimen as above To have formal ophthalmology evaluation as outpatient bp control (3) Hypothyroidism Current Visit: Yes Status: Acute Assessment and Plan: TSH elevated 79.1 Synthroid dose increased to 88 g for PCP to follow TFTs in 4 weeks and adjust (4) History of CVA (cerebrovascular accident) Current Visit: Yes Status: Acute Assessment and Plan: as per patient she has had hemorrhagic stroke in the past without any residual deficit CT head negative for any acute ICH (5) Obesity (BMI 30-39.9) Current Visit: Yes Status: Acute Assessment and Plan: was counseled on diet and nutrition along with exercise. (6) Tobacco abuse disorder Current Visit: Yes Status: Acute Assessment and Plan: Was counseled (7) DVT prophylaxis Current Visit: Yes Status: Acute Assessment and Plan: heparin sc - Time Spent with Patient Total time spent is greater than 50% in coordination of care (as documented) at patient's floor/unit and/or counseling patient: Internal Medicine: Result - Labs CBC & Chem 7: 08/23/18 04:05 08/23/18 04:05 - ABG Interpretation ABG results: PT/INR, D-dimer PT 11.2 Seconds (9.4-12.1) 08/22/18 14:18 - Impressions Impressions Echocardiogram 08/22/18 14:10 Impressions: Technically sub-optimal due to poor echocardiographic windows. LVEF 55%. Normal LV chamber size, wall thickness and function. Mild left ventricular diastolic dysfunction. Normal right ventricular structure and function. Interatrial septum not well evaluated. Saline contrast not optimal in this study. Consider FERNANDA if no contraindications. No significant valvular dysfunction. Unable to estimate RVSP due to lack of TR jet. Left Ventricular Wall Motion: Rest Echo Findings All wall segments showed normal motion. Findings: Study Quality * Technically sub-optimal due to poor echocardiographic windows. Left Ventricle * LVEF 55%. * Normal LV chamber size, wall thickness and function. * Mild left ventricular diastolic dysfunction. ECG Findings * Normal sinus rhythm. Right Ventricle * Normal right ventricular structure and function. Left Atrium * Normal left atrial size. Right Atrium * Normal right atrial size. Interatrial Septum * Interatrial septum not well evaluated. Saline contrast study not optimal. Consider FERNANDA if no contraindications. Aortic Valve * Aortic valve not well visualized. * No aortic regurgitation. * No aortic stenosis. Mitral Valve * Normal mitral valve structure. * No mitral regurgitation. * No mitral stenosis. Tricuspid Valve * Unable to estimate RVSP due to lack of TR jet. * No tricuspid stenosis. * No tricuspid regurgitation. * Tricuspid valve not well visualized. Pulmonic Valve * Pulmonic valve not well visualized. Aorta * Normally sized aortic root. Pericardium * The pericardium appears normal. IVC * Normal IVC dimensions and inspiratory collapse. Consult Discharge Plan - Plan Referrals: Ludy Bain CNP [Primary Care Provider] - 08/27/18 10:30 am (3) Hypothyroidism Qualifiers: Hypothyroidism type: acquired Qualified Code(s): E03.9 - Hypothyroidism, unspecified
[2018-08-24] MEDS ORDERED: *HR* LORazepam 0.5 MG TABLET PO ONE (11:27)
[2018-08-25] MEDS: *HR* Heparin 5,000 UNIT/ML VIAL SQ SCH ×3 (05:39→21:20)
[2018-08-25] MEDS: Aspirin 325 MG TABLET PO SCH (09:30)
[2018-08-25] MEDS: Metoprolol 100 MG TABLET PO SCH ×2 (09:30→21:20)
[2018-08-25] MEDS: Verapamil ER (24 HR) 240 MG TABLET.ER PO SCH (09:30)
--- NOTE | 2018-08-25 12:40 | Discharge Summary ---
- NOTES TO OUTPATIENT PROVIDER Notes to Outpatient Provider: follow up A11 it was 5.9 on 08/2018. follow TFTS in 4 weeks synthrid increased. follow up lipid panel and adjust dose. follow with cardiology as OP Orders not resulted at time of discharge: Pending orders 08/22/18 14:07 ECG 12 lead ECG [ECG] Routine Date of Encounter: 08/25/18 Time of Encounter: 12:38 - Discharge Diagnosis (1) Acute lacunar stroke Priority: Primary Status: Acute (2) Diplopia Priority: Secondary Status: Acute (3) Hypothyroidism Priority: Secondary Status: Acute Qualifiers: Hypothyroidism type: acquired Qualified Code(s): E03.9 - Hypothyroidism, unspecified (4) History of CVA (cerebrovascular accident) Priority: Secondary Status: Acute (5) Obesity (BMI 30-39.9) Priority: Secondary Status: Acute (6) Tobacco abuse disorder Priority: Secondary Status: Acute (7) DVT prophylaxis Priority: Secondary Status: Acute (8) Pre-diabetes Priority: Secondary Status: Acute (9) Hypertension Priority: Secondary Status: Acute Qualifiers: Hypertension type: essential hypertension Qualified Code(s): I10 - Essential (primary) hypertension Hospital course: Ms. Osullivan is a 57 year old female with history of hypertension, migraine, hypothyroidism and history of hemorrhagic stroke in the past without any residual deficit presented o [facility] ED with double vision. she reports that her double vision started jamarcus day before admission but she went to sleep as she thought it was due to being tired however woke up the next morning adn decided to come to the ED. she reports that her double vision has remained constant, not associated with dizziness, vision loss, N/V. she denies recent eye trauma or head trauma. has never had symptoms like this before. she also reports difficulty walking, right arm numbness and paresthesia since 2 days before admission. family at bedside also reports that they noticed a right sided facial droop and slurred speech. she denies fever, chills, recent URTI, falls, headache, N/v/d, loss of function in her extremities. in the ED Ct head did not show any acute stroke, she was given ASA 325 mg and neurology was consulted and was admitted to medicine for further evaluation. MRA head and MRI of the neck was performed and it showed Acute lacunar infarct w ithin the left medullary pyramid. neurology consulted and recommended ASA 325 mg daily, along with lipitor. TTE and carotid doppler did not show any acute abnormalities ( discussed findings with neurologist). lipid panel followed and she was started on lipitor 80 mg for PCP to follow lipid panel in 4 weeks and adjust A1c was 5.9 she was counseled on diet and nutrition along with exercise. TSH was elevated 79.1 Synthroid dose increased to 88 g for PCP to follow TFTs in 4 weeks and adjust dose. PT/OT consulted and recs followed. losartan ad HCTZ added for better BP control. TTE: Impressions: Technically sub-optimal due to poor echocardiographic windows. LVEF 55%. Normal LV chamber size, wall thickness and function. Mild left ventricular diastolic dysfunction. Normal right ventricular structure and function. Interatrial septum not well evaluated. Saline contrast not optimal in this study. Consider FERNANDA if no contraindications. No significant valvular dysfunction. Unable to estimate RVSP due to lack of TR jet. MRI neck IMPRESSION: No significant abnormality of the neck vessels. MRA head: IMPRESSION: Acute lacunar infarct within the left medullary pyramid. Limited MRA of the brain. Discharge discussed with: patient, family, nurse, case management, regulatory affairs consultant Time spent discussing smoking cessation with patient: more than 10 minutes - Time Spent with Patient Total time spent providing and/or coordinating discharge services: Greater than 30 minutes (40) - Discharge Medications Prescriptions: Aspirin 325 mg PO DAILY #30 tablet Atorvastatin [Lipitor] 80 mg PO HS #30 tablet hydroCHLOROthiazide [Hydrochlorothiazide] 12.5 mg PO DAILY #30 tablet Levothyroxine [Synthroid] 88 mcg PO DAILY@0630 #30 tablet Losartan [Cozaar] 100 mg PO DAILY #30 tablet Home Medications: Acetaminophen [Tylenol] 650 mg PO BID PRN 08/22/18 [History] Amitriptyline [Elavil] 25 mg PO HS 08/22/18 [History] Duloxetine HCl [Cymbalta] 60 mg PO DAILY 08/22/18 [History] Metoprolol Tartrate 100 mg PO BID 08/22/18 [History] Verapamil ER (24 HR) [Calan SR] 240 mg PO DAILY 08/22/18 [History] Aspirin 325 mg PO DAILY #30 tablet 08/25/18 [Rx] Atorvastatin [Lipitor] 80 mg PO HS #30 tablet 08/25/18 [Rx] Levothyroxine [Synthroid] 88 mcg PO DAILY@0630 #30 tablet 08/25/18 [Rx] Losartan [Cozaar] 100 mg PO DAILY #30 tablet 08/25/18 [Rx] hydroCHLOROthiazide [Hydrochlorothiazide] 12.5 mg PO DAILY #30 tablet 08/25/18 [Rx] Allergies/Adverse Reactions: Allergy/AdvReac Type Severity Reaction Status Date / Time No Known Allergies Allergy Verified 08/22/18 15:34 Date of admission: 08/25/18 07:13 Primary care physician: Ludy Bain CNP Consults: 08/22/18 11:56 Consult to Neurology [CONS] Stat Consulting Provider: Neurology [facility] Reason for Consult: diplopia, R sided weakness, prior hemorrhagic CVA Time Notified: 11:56 Call Completed: Yes 08/22/18 14:12 Consult to Case Management [CONS] Routine Comment: Consult to Physical Therapy [CONS] Routine Comment: Evaluate, develop and implement POC Reason for Consult: dispostion Does patient have active BEDREST order?: No Is patient medically & hemodynamically stable?: Yes Patient assessed for mobility or mobilized this visit?: Yes OT [Consult to Occupational Therapy] [CONS] Routine Comment: Evaluate, develop and implement POC Reason for Consult: disposition Does patient have active BEDREST order?: No Is patient medically & hemodynamically stable?: Yes Patient assessed for mobility or mobilized this visit?: Yes 08/25/18 08:24 Consult to Party Demonstrator [CONS] Routine Reason for SW Consult: PT/OT RECOMMEND IP SWING. PATIENT WANTS PIKE SWING - Constitutional Vitals: Temp Pulse Resp BP Pulse Ox 98.1 F 68 18 151/98 94 08/25/18 11:26 08/25/18 11:26 08/25/18 11:26 08/25/18 11:26 08/25/18 11:26 Exam: General: Patient is alert, oriented, no acute distress, obese Head: atraumatic, normocephalic, Eye: normal appearance, PERRL, no scleral icterus, no conjunctival injection ENT: mucous membranes moist, normal external ear exam Neck: normal inspection, trachea midline, full ROM, no carotid bruits Chest: normal inspection, symmetric chest rise Respiratory: Good respiratory effort. Bilateral breath sounds are clear without wheezing, crackles, or rhonchi. Cardiovascular: Regular rate and rhythm. s1 and s2 No clicks, rubs, gallops, or murmors. Abdomen: Bowel sounds present normoactive x-4 quadrants. Abdomen is soft, nondistended. no Epigastric tenderness. No guarding or rebound. No organomegaly noted, obese musculoskeletal: Spontaneously moving all extremities. no edema, no calf tenderness Skin: warm, dry, intact. Neuro: Alert and oriented x3 pronator drift negative, mild slurred speech, heel to chin intact, rapid hand movement intact, tongue midline, could not appreciate facial droop. has right foot drop strength in jamarcus RLE and RUE is 4/5 and 5/5 in the left extremities. Psych: Patient's affect is normal - Patient Status Disposition: Transfer Inpatient Rehab Fac Condition: Fair Functional capacity at discharge: uses cane/walker Overall status at discharge: patient is progressing back to baseline - Discharge Instructions Follow Up With: Ludy Bain CNP [Primary Care Provider] - 08/27/18 10:30 am - Diet and Activity Activity: as per physical therapy, increase activity as tolerated Diet: diabetic diet, low salt diet
--- NOTE | 2018-08-25 13:18 | Physician Discharge Referral ---
ExtendedCare Referral Info Provider in Charge after Transfer: PCP Institutional Level of Care: Skilled - Diagnosis (1) Acute lacunar stroke Priority: Primary Status: Acute (2) Diplopia Status: Acute (3) Hypothyroidism Status: Acute (4) History of CVA (cerebrovascular accident) Status: Acute (5) Obesity (BMI 30-39.9) Status: Acute (6) Tobacco abuse disorder Status: Acute (7) DVT prophylaxis Status: Acute (8) Pre-diabetes Status: Acute (9) Hypertension Status: Acute - Transfer Medications Prescriptions: Aspirin 325 mg PO DAILY #30 tablet Atorvastatin [Lipitor] 80 mg PO HS #30 tablet hydroCHLOROthiazide [Hydrochlorothiazide] 12.5 mg PO DAILY #30 tablet Levothyroxine [Synthroid] 88 mcg PO DAILY@0630 #30 tablet Losartan [Cozaar] 100 mg PO DAILY #30 tablet Home Medications: Acetaminophen [Tylenol] 650 mg PO BID PRN 08/22/18 [History] Amitriptyline [Elavil] 25 mg PO HS 08/22/18 [History] Duloxetine HCl [Cymbalta] 60 mg PO DAILY 08/22/18 [History] Metoprolol Tartrate 100 mg PO BID 08/22/18 [History] Verapamil ER (24 HR) [Calan SR] 240 mg PO DAILY 08/22/18 [History] Aspirin 325 mg PO DAILY #30 tablet 08/25/18 [Rx] Atorvastatin [Lipitor] 80 mg PO HS #30 tablet 08/25/18 [Rx] Levothyroxine [Synthroid] 88 mcg PO DAILY@0630 #30 tablet 08/25/18 [Rx] Losartan [Cozaar] 100 mg PO DAILY #30 tablet 08/25/18 [Rx] hydroCHLOROthiazide [Hydrochlorothiazide] 12.5 mg PO DAILY #30 tablet 08/25/18 [Rx] Allergies/Adverse Reactions: Allergy/AdvReac Type Severity Reaction Status Date / Time No Known Allergies Allergy Verified 08/22/18 15:34 - Respiratory Orders Smoking Cessation: Smoking cessation has been advised. For more information, call the [place] Tobacco Quit Line at 7-104-WNFD-NOW. - Lab Orders Lab Orders: Other (include drug levels w/frequency) (lipid panel, TFT in 4 weeks and A1c in 3 months) - Advance Directives Code Status: Full Code - Mobility Orders Ambulate - Rehabiliation Orders Rehab Potential: Good Rehab Orders: ROM Exercises, Evaluation for Physical Therapy, Evaluation for Occupational Therapy - Diet Orders Cardiac (diabetic) CERTIFICATION: I certify that the transfer of the above named patient to an Extended Care Facility is necessary for the continuing treatment of the diagnosis listed. The above information is true and accurate reflection of patient's current condition. Confidential - Redisclosure prohibited without a patient's written consent.
[2018-08-25] MEDS: hydroCHLOROthiazide 25 MG TABLET PO SCH (13:56)
[2018-08-26] MEDS: *HR* Heparin 5,000 UNIT/ML VIAL SQ SCH ×3 (05:20→23:20)
[2018-08-26] MEDS: hydroCHLOROthiazide 25 MG TABLET PO SCH (08:50)
[2018-08-26] MEDS: Verapamil ER (24 HR) 240 MG TABLET.ER PO SCH (08:50)
[2018-08-26] MEDS: Aspirin 325 MG TABLET PO SCH (08:50)
[2018-08-26] MEDS: Metoprolol 100 MG TABLET PO SCH ×2 (08:52→20:52)
--- NOTE | 2018-08-26 10:49 | Neurology Progress Note ---
Date of Encounter: 08/26/18 Time of Encounter: 09:45 Assessment and Plan (1) Acute CVA (cerebrovascular accident) Current Visit: Yes Status: Acute Patient noted to have a increasing weakness of the right upper extremity though initially she did have a right arm weakness but this morning seems to be more pronounced it is possible she could have an extension of the infarct but on the other hand it could be due to hypoperfusion as she is on few blood pressure medication. As blood pressure might need to be stabilize and significantly low blood pressure can cause worsening of the weakness. She be getting a stat CT of the head Patient likely not a candidate for any TPA at this time as she already had a infarct on imaging studies Suggest to keep blood pressure slightly higher to avoid hypoperfusion Patient also getting slightly anxious and nervous perhaps could be the contributing factor into her symptoms We will follow the patient with you (2) Diplopia Current Visit: Yes Status: Acute (3) History of CVA (cerebrovascular accident) Current Visit: Yes Status: Acute Subjective Interval history: Was called this morning to be evaluated the patient because of increasing weakness of the right upper extremity patient the seen earlier with medullary infarct with mild weakness of the right upper extremity that she had so far workup has been negative she was supposed to be discharged to the short-term rehabilitation and was waiting for bed placement and noted to have increasing symptoms this morning she denies any new numbness or tingling, but noted to have increasing weakness at the same time she denies any difficulty with his speech any facial drooping or any weakness in the lower extremities she continued to be on blood pressure medication Objective - Constitutional Vitals: Temp Pulse Resp BP Pulse Ox 98.1 F 71 17 126/85 92 08/26/18 08:40 08/26/18 08:40 08/26/18 08:40 08/26/18 08:40 08/26/18 08:40 - Neurological Exam Sensorimotor examination: Present: intact Motor Examination: Present: grossly full strength in all extremities Motor examination - right side: 2/5: pickle pumper, 3/5: deltoids, biceps, triceps, wrist flexion, wrist extension, 4/5: hip flexors, tibialis Anterior, quadriceps, toe extension (EHL), plantarflexion Motor examination - left side: 5/5: deltoids, biceps, triceps, wrist flexion, wrist extension, hip flexors, pickle pumper, quadriceps, tibialis Anterior, toe extension (EHL), plantarflexion Sensation intact: Present: intact Reflex and gait examination: intact Reflexes: Biceps: 1+, Triceps: 1+, Brachioradialis: 1+, Patella: 1+, Achilles: 1+ Mental Status Examination: Present: awake, alert, oriented to person, oriented to place, oriented to time, answers questions appropriately Cranial nerve examination: Present: PERRL, EOMI, visual mitchell intact, mastication intact, no facial asymmetry is present, no dysarthria Cerebellar examination: Present: no dysmetria Results - Laboratory Findings CBC and BMP: 08/23/18 04:05 08/23/18 04:05 Abnormal lab findings: Abnormal lab results Hct 45.4 % (35.3-44.9) H 08/23/18 04:05 BUN 21 mg/dL (6-20) H 08/23/18 04:05 POC Glucose 110 mg/dL (70-99) H 08/22/18 20:30 Hemoglobin A1c 5.9 % (-5.6) H 08/23/18 04:05 Triglycerides 195 mg/dL (< 150) H 08/23/18 04:05 Cholesterol 272 mg/dL (< 200) H 08/23/18 04:05 LDL Cholesterol, Calc 195 mg/dL (0-99) H 08/23/18 04:05 VLDL Cholesterol, Calc 39 mg/dL (< 31) H 08/23/18 04:05 HDL Cholesterol 38 mg/dL (40-59) L 08/23/18 04:05 Cholesterol/HDL Ratio 7.2 (0-4.9) H 08/23/18 04:05 TSH 79.190 mcIU/mL (0.340-5.600) H 08/23/18 04:05 Ur Squamous Epith Cells Many per lpf (None-Few) H 08/22/18 11:08 - Diagnostic Findings Additional findings: mRI of the brain shows acute infarct in the left medullary pyramid MRA of the head did not show any critical stenosis though it was a limited study MRA of the neck was negative for any extracranial stenosis Echocardiogram did not show any embolus or any significant abnormalities but it was a limited study Consult Discharge Plan - Plan Referrals: Ludy Bain, ARCHANA [Primary Care Provider] - 08/27/18 10:30 am Prescriptions: Aspirin 325 mg PO DAILY #30 tablet Atorvastatin [Lipitor] 80 mg PO HS #30 tablet hydroCHLOROthiazide [Hydrochlorothiazide] 12.5 mg PO DAILY #30 tablet Levothyroxine [Synthroid] 88 mcg PO DAILY@0630 #30 tablet Losartan [Cozaar] 100 mg PO DAILY #30 tablet
--- NOTE | 2018-08-26 11:08 | Internal Med Progress Note ---
Hospitalist Progress Note - Encounter Date of Encounter: 08/26/18 Time of Encounter: 09:30 - Subjective Interval History: patient was seen and examined at bedside. has no complaints, tolerating PO diet. pain is controlled. no overnight events. this morning she did her right arm exercises adn after she felt as though her right arm is becoming weaker. denies fever, chills, N/V/D, chest pain, SOB or palpitations, vision is at baseline, no headache . - Exam Vitals: Temp Pulse Resp BP Pulse Ox 98.1 F 71 17 126/85 92 08/26/18 08:40 08/26/18 08:40 08/26/18 08:40 08/26/18 08:40 08/26/18 08:40 Exam: General: Patient is alert, oriented, no acute distress, obese Head: atraumatic, normocephalic, Eye: normal appearance, PERRL, no scleral icterus, no conjunctival injection ENT: mucous membranes moist, normal external ear exam Neck: normal inspection, trachea midline, full ROM, no carotid bruits Chest: normal inspection, symmetric chest rise Respiratory: Good respiratory effort. Bilateral breath sounds are clear without wheezing, crackles, or rhonchi. Cardiovascular: Regular rate and rhythm. s1 and s2 No clicks, rubs, gallops, or murmors. Abdomen: Bowel sounds present normoactive x-4 quadrants. Abdomen is soft, nondistended. no Epigastric tenderness. No guarding or rebound. No organomegaly noted, obese musculoskeletal: Spontaneously moving all extremities. no edema, no calf tenderness Skin: warm, dry, intact. Neuro: Alert and oriented x3 pronator drift negative, mild slurred speech, heel to chin intact, tongue midline, has right foot drop strength in the RLE 4/5 and 2/5 strength in the right upper extremity and 5/5 in the left extremities, mild facial droop as per family at bedside (have noticed since she has been here) however its more noticeable now . Psych: Patient's affect is normal - Assessment and Plan (1) Acute lacunar stroke Current Visit: Yes Status: Acute Assessment and Plan: Acute lacunar infarct within the left medullary pyramid. repeat worsening weakness on 08/26- repeat CT head stable neurology on board - "Patient likely not a candidate for any TPA at this time as she already had a infarct on imaging studies Suggest to keep blood pressure slightly higher to avoid hypoperfusion" will continue to monitor her with neurochecks Q3H received ASA 325 mg in the ED will continue aspirin 325 mg daily as per neurology recommendationsdiscussed with Dr. Brunson lipitor 80 mg QHS losartan added for better BP control - will discontinue HCTZ as per neurology recs to keep SBP on the higher side. MRI head and MRA head and neck- reviewed showing acute lacunar infarct within the left medullary. TTE with bubble study reviewed- discussed with Dr. Brunson no need for carotid doppler- reviewed. Lipid panel, TSH, A1c reviewed will adjust medications Neuro checks as per protocol Keep systolic BP <220 and diastolic BP <120 mmHg Maintain LDL less than 75 PT/OT evaluation fall aspiration seizure precautions tele monitoring DVT prophylaxis TTE: Impressions: Technically sub-optimal due to poor echocardiographic windows. LVEF 55%. Normal LV chamber size, wall thickness and function. Mild left ventricular diastolic dysfunction. Normal right ventricular structure and function. Interatrial septum not well evaluated. Saline contrast not optimal in this study. Consider FERNANDA if no contraindications. No significant valvular dysfunction. Unable to estimate RVSP due to lack of TR jet. carotid doppler: Findings: Bilateral carotid system has nonstenotic plaque. (2) Diplopia Current Visit: Yes Status: Acute Assessment and Plan: ? secondary to CVA neurology on board will follow recs Regimen as above To have formal ophthalmology evaluation as outpatient bp control (3) Hypothyroidism Current Visit: Yes Status: Acute Assessment and Plan: TSH elevated 79.1 Synthroid dose increased to 88 g for PCP to follow TFTs in 4 weeks and adjust (4) History of CVA (cerebrovascular accident) Current Visit: Yes Status: Acute Assessment and Plan: as per patient she has had hemorrhagic stroke in the past without any residual deficit CT head negative for any acute ICH (5) Obesity (BMI 30-39.9) Current Visit: Yes Status: Acute Assessment and Plan: was counseled on diet and nutrition along with exercise. (6) Tobacco abuse disorder Current Visit: Yes Status: Acute Assessment and Plan: Was counseled (7) DVT prophylaxis Current Visit: Yes Status: Acute Assessment and Plan: heparin sc (8) Pre-diabetes Current Visit: Yes Status: Acute Assessment and Plan: i discussed diet and exercise with patient to have 1c followed (9) Hypertension Current Visit: Yes Status: Acute - Time Spent with Patient Total time spent is greater than 50% in coordination of care (as documented) at patient's floor/unit and/or counseling patient: Internal Medicine: Result - Labs CBC & Chem 7: 08/23/18 04:05 08/23/18 04:05 - ABG Interpretation ABG results: PT/INR, D-dimer PT 11.2 Seconds (9.4-12.1) 08/22/18 14:18 - Impressions Impressions Neck MRA 08/22/18 14:03 IMPRESSION: No significant abnormality of the neck vessels. D/ / 08/22/2018 17:55:10 Rosario Suárez MD / earnold Interpreting Provider: Rosario Suárez MD Head CT 08/26/18 09:15 IMPRESSION: Possible small focus of hypodensity along the left medullary pyramid, which correlates with the known infarct in this region. No evidence of acute hemorrhage. D/ / Sheng Olsen MD / Sheng Olsen MD Interpreting Provider: Sheng Olsen MD Consult Discharge Plan - Plan Referrals: Ludy Bain CNP [Primary Care Provider] - 08/27/18 10:30 am Prescriptions: Aspirin 325 mg PO DAILY #30 tablet Atorvastatin [Lipitor] 80 mg PO HS #30 tablet hydroCHLOROthiazide [Hydrochlorothiazide] 12.5 mg PO DAILY #30 tablet Levothyroxine [Synthroid] 88 mcg PO DAILY@0630 #30 tablet Losartan [Cozaar] 100 mg PO DAILY #30 tablet (3) Hypothyroidism Qualifiers: Hypothyroidism type: acquired Qualified Code(s): E03.9 - Hypothyroidism, unspecified (9) Hypertension Qualifiers: Hypertension type: essential hypertension Qualified Code(s): I10 - Essential (primary) hypertension
--- NOTE | 2018-08-26 15:46 | Event Note ---
Date of Encounter: 08/26/18 Time of Encounter: 14:42 pt seen and examined again this afternoon, she continued to have weakness of right upper and lower extremity which is different than her baseline examination since she is been here. CT scan of the head did not show any new abnormality no evidence of any bleed it did shows medullary infarct as well as noted on previous MRI scan. 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 and sometimes it could have extension in the next few days after the initial event at the same time decreasing blood pressure may have contributed to it as well now blood pressure seems to be stable suggested to keep it higher diastolic 100-120, May need to repeat MRI scan , she already had an MRA that did not show any critical stenosis in anterior posterior circulation Discussed with the patient in detail she is claustrophobic and did not want to get an MRI done, even with the medication she would like to wait overnight and according to her she may try tomorrow She is already on aspirin I would like to add Plavix to it continue on the statin continue to monitor the blood pressure
--- NOTE | 2018-08-26 17:48 | Emergency Department Note ---
Disposition Clinical Impression: Left-sided weakness, History of CVA (cerebrovascular accident), Weakness, Diplopia Disposition: Admitted As Inpatient Condition: Fair General Adult HPI - General Chief complaint: ED Neuro Symptoms/Deficit Stated complaint: weakness Time Seen by Provider: 08/22/18 09:26 Source: patient Mode of arrival: ambulatory Limitations: no limitations - History of Present Illness Pain Scale: 0 - Related Data Home Medications Medication Instructions Recorded Confirmed Acetaminophen [Tylenol] 650 mg PO BID PRN 08/22/18 08/22/18 Amitriptyline [Elavil] 25 mg PO HS 08/22/18 08/22/18 Duloxetine HCl [Cymbalta] 60 mg PO DAILY 08/22/18 08/22/18 Metoprolol Tartrate 100 mg PO BID 08/22/18 08/22/18 Verapamil ER (24 HR) [Calan SR] 240 mg PO DAILY 08/22/18 08/22/18 Previous Rx's Medication Instructions Recorded Aspirin 325 mg PO DAILY #30 tablet 08/25/18 Atorvastatin [Lipitor] 80 mg PO HS #30 tablet 08/25/18 Levothyroxine [Synthroid] 88 mcg PO DAILY@0630 #30 tablet 08/25/18 Losartan [Cozaar] 100 mg PO DAILY #30 tablet 08/25/18 Allergies Allergy/AdvReac Type Severity Reaction Status Date / Time No Known Allergies Allergy Verified 08/22/18 15:34 Past Medical History - Past Medical History Medical history: Reports: hypertension, migraine, thyroid disease Surgical history: Reports: hysterectomy, thyroidectomy Psychiatric history: Reports: depression HEALTH CARE LIAISON history: Reports: no HEALTH CARE LIAISON history - Social History Smoking Status: Current every day smoker Smokeless Tobacco Status: No Alcohol use: Reports: none Drug use: Reports: none Physical Exam - General Limitations: no limitations General appearance: alert, in no apparent distress Course Vital Signs Temperature 98.5 F 08/22/18 09:20 Pulse Rate 62 08/22/18 09:20 Respiratory Rate 16 08/22/18 09:20 Blood Pressure 157/101 08/22/18 09:20 O2 Sat by Pulse Oximetry 97 08/22/18 09:20 Temperature 97.6 F 08/26/18 11:50 Pulse Rate 60 08/26/18 11:50 Respiratory Rate 17 08/26/18 11:50 Blood Pressure 156/105 08/26/18 11:50 O2 Sat by Pulse Oximetry 98 08/26/18 11:50 Oxygen Delivery Oxygen Delivery Room Air Medical Decision Making - Lab Data Result diagrams: 08/23/18 04:05 08/23/18 04:05 Lab Results 08/22/18 08/22/18 08/22/18 Range/Units 09:33 10:04 10:04 WBC 15.6 H (4.3-11.1) K/mcL RBC 4.71 (3.82-4.97) M/mcL Hgb 15.2 (11.5-15.4) g/dL Hct 45.3 H (35.3-44.9) % MCV 96.2 (83.0-100.0) fL MCH 32.3 (28.0-33.3) pg MCHC 33.6 (31.6-35.5) g/dL RDW 13.5 (11.5-14.5) % Plt Count 265 (140-400) K/mcL MPV 9.8 (9.4-12.4) fL Immature Gran % 0.8 (0-4) % Seg Neutrophils % 82.6 % Lymphocytes % 10.7 % Monocytes % 4.4 % Eosinophils % 0.7 % Basophils % 0.8 % Neutrophils # 12.9 H (1.6-8.9) K/mcL Lymphocytes # 1.7 (0.6-4.6) K/mcL Monocytes # 0.7 (0.0-1.3) K/mcL Eosinophils # 0.1 (0.0-0.6) K/mcL Basophils # 0.1 (0.0-0.2) K/mcL PT (9.4-12.1) Seconds INR APTT (26.0-36.0) Seconds Sodium 138 (136-145) mEq/L Potassium 4.1 (3.5-5.1) mEq/L Chloride 107 (98-107) mEq/L Carbon Dioxide 26 (23-29) mEq/L BUN 22 H (6-20) mg/dL Creatinine 0.90 (0.60-1.20) mg/dL Est GFR ( Amer) > 60 (> 60) Est GFR (Non-Af Amer) > 60 (> 60) BUN/Creatinine Ratio 24 (6-26) Glucose 133 H (70-105) mg/dL POC Glucose 123 H (70-99) mg/dL Est Mean Plasma Glucose mg/dl Hemoglobin A1c ( - 5.6) % Calculated Osmolality 291 (280-300) Calcium 9.4 (8.6-10.3) mg/dL Phosphorus (2.7-4.5) mg/dL Magnesium 2.1 (1.6-2.6) mg/dL Troponin I < 0.03 (< 0.04) ng/mL Triglycerides (< 150) mg/dL Cholesterol (< 200) mg/dL LDL Cholesterol, Calc (0-99) mg/dL VLDL Cholesterol, Calc (< 31) mg/dL HDL Cholesterol (40-59) mg/dL Cholesterol/HDL Ratio (0-4.9) Vitamin B12 (250-1100) pg/mL TSH (0.340-5.600) mcIU/mL Urine Color (Yellow) Urine Clarity (Clear) Urine pH (5.0-8.0) pH Units Ur Specific [place] (1.010-1.025) Urine Protein (Neg-Trace) mg/dL Urine Glucose (UA) (Normal) mg/dL Urine Ketones (Negative) mg/dL Urine Blood (Negative) Urine Nitrite (Negative) Urine Bilirubin (Negative) Urine Urobilinogen (Normal) mg/dL Ur Leukocyte Esterase (Negative) Urine Microscopic RBC (0-3) per hpf Urine Microscopic WBC (0-3) per hpf Ur Squamous Epith Cells (None-Few) per lpf Urine Bacteria (None-Few) per hpf Hyaline Casts (None-Few) per lpf Ur Culture Indicated? (NO) Urine Opiates Screen (Lrsoia=281) ng/mL Ur Barbiturates Screen (Izvzbg=441) ng/mL Ur Phencyclidine Scrn (Cutoff=25) ng/mL Ur Amphetamines Screen (Aersce=1633) ng/mL U Benzodiazepines Scrn (Tsilib=592) ng/mL Urine Cocaine Screen (Cutoff= 300) ng/mL U Marijuana (THC) Screen (Cutoff = 50) ng/mL Ur Drug Screen Interp 08/22/18 08/22/18 08/22/18 Range/Units 11:08 14:18 15:36 WBC (4.3-11.1) K/mcL RBC (3.82-4.97) M/mcL Hgb (11.5-15.4) g/dL Hct (35.3-44.9) % MCV (83.0-100.0) fL MCH (28.0-33.3) pg MCHC (31.6-35.5) g/dL RDW (11.5-14.5) % Plt Count (140-400) K/mcL MPV (9.4-12.4) fL Immature Gran % (0-4) % Seg Neutrophils % % Lymphocytes % % Monocytes % % Eosinophils % % Basophils % % Neutrophils # (1.6-8.9) K/mcL Lymphocytes # (0.6-4.6) K/mcL Monocytes # (0.0-1.3) K/mcL Eosinophils # (0.0-0.6) K/mcL Basophils # (0.0-0.2) K/mcL PT 11.2 (9.4-12.1) Seconds INR 1.0 APTT 28.0 (26.0-36.0) Seconds Sodium (136-145) mEq/L Potassium (3.5-5.1) mEq/L Chloride (98-107) mEq/L Carbon Dioxide (23-29) mEq/L BUN (6-20) mg/dL Creatinine (0.60-1.20) mg/dL Est GFR ( Amer) (> 60) Est GFR (Non-Af Amer) (> 60) BUN/Creatinine Ratio (6-26) Glucose (70-105) mg/dL POC Glucose 105 H (70-99) mg/dL Est Mean Plasma Glucose mg/dl Hemoglobin A1c ( - 5.6) % Calculated Osmolality (280-300) Calcium (8.6-10.3) mg/dL Phosphorus (2.7-4.5) mg/dL Magnesium (1.6-2.6) mg/dL Troponin I (< 0.04) ng/mL Triglycerides (< 150) mg/dL Cholesterol (< 200) mg/dL LDL Cholesterol, Calc (0-99) mg/dL VLDL Cholesterol, Calc (< 31) mg/dL HDL Cholesterol (40-59) mg/dL Cholesterol/HDL Ratio (0-4.9) Vitamin B12 (250-1100) pg/mL TSH (0.340-5.600) mcIU/mL Urine Color Yellow (Yellow) Urine Clarity Clear (Clear) Urine pH 7.5 (5.0-8.0) pH Units Ur Specific [place] 1.025 (1.010-1.025) Urine Protein Trace (Neg-Trace) mg/dL Urine Glucose (UA) Normal (Normal) mg/dL Urine Ketones Negative (Negative) mg/dL Urine Blood Negative (Negative) Urine Nitrite Negative (Negative) Urine Bilirubin Negative (Negative) Urine Urobilinogen Normal (Normal) mg/dL Ur Leukocyte Esterase Negative (Negative) Urine Microscopic RBC 0-3 (0-3) per hpf Urine Microscopic WBC 0-3 (0-3) per hpf Ur Squamous Epith Cells Many H (None-Few) per lpf Urine Bacteria Few (None-Few) per hpf Hyaline Casts None Seen (None-Few) per lpf Ur Culture Indicated? NO (NO) Urine Opiates Screen (Ynlyku=512) ng/mL Ur Barbiturates Screen (Ihqmus=846) ng/mL Ur Phencyclidine Scrn (Cutoff=25) ng/mL Ur Amphetamines Screen (Pdzzjx=8947) ng/mL U Benzodiazepines Scrn (Xvmuny=373) ng/mL Urine Cocaine Screen (Cutoff= 300) ng/mL U Marijuana (THC) Screen (Cutoff = 50) ng/mL Ur Drug Screen Interp 08/22/18 08/22/18 08/23/18 Range/Units 18:50 20:30 04:05 WBC 10.1 (4.3-11.1) K/mcL RBC 4.66 (3.82-4.97) M/mcL Hgb 14.9 (11.5-15.4) g/dL Hct 45.4 H (35.3-44.9) % MCV 97.4 (83.0-100.0) fL MCH 32.0 (28.0-33.3) pg MCHC 32.8 (31.6-35.5) g/dL RDW 13.7 (11.5-14.5) % Plt Count 243 (140-400) K/mcL MPV 10.1 (9.4-12.4) fL Immature Gran % 0.5 (0-4) % Seg Neutrophils % 64.2 % Lymphocytes % 25.1 % Monocytes % 7.1 % Eosinophils % 2.1 % Basophils % 1.0 % Neutrophils # 6.5 (1.6-8.9) K/mcL Lymphocytes # 2.5 (0.6-4.6) K/mcL Monocytes # 0.7 (0.0-1.3) K/mcL Eosinophils # 0.2 (0.0-0.6) K/mcL Basophils # 0.1 (0.0-0.2) K/mcL PT (9.4-12.1) Seconds INR APTT (26.0-36.0) Seconds Sodium (136-145) mEq/L Potassium (3.5-5.1) mEq/L Chloride (98-107) mEq/L Carbon Dioxide (23-29) mEq/L BUN (6-20) mg/dL Creatinine (0.60-1.20) mg/dL Est GFR ( Amer) (> 60) Est GFR (Non-Af Amer) (> 60) BUN/Creatinine Ratio (6-26) Glucose (70-105) mg/dL POC Glucose 110 H (70-99) mg/dL Est Mean Plasma Glucose mg/dl Hemoglobin A1c ( - 5.6) % Calculated Osmolality (280-300) Calcium (8.6-10.3) mg/dL Phosphorus (2.7-4.5) mg/dL Magnesium (1.6-2.6) mg/dL Troponin I (< 0.04) ng/mL Triglycerides (< 150) mg/dL Cholesterol (< 200) mg/dL LDL Cholesterol, Calc (0-99) mg/dL VLDL Cholesterol, Calc (< 31) mg/dL HDL Cholesterol (40-59) mg/dL Cholesterol/HDL Ratio (0-4.9) Vitamin B12 (250-1100) pg/mL TSH (0.340-5.600) mcIU/mL Urine Color (Yellow) Urine Clarity (Clear) Urine pH (5.0-8.0) pH Units Ur Specific [place] (1.010-1.025) Urine Protein (Neg-Trace) mg/dL Urine Glucose (UA) (Normal) mg/dL Urine Ketones (Negative) mg/dL Urine Blood (Negative) Urine Nitrite (Negative) Urine Bilirubin (Negative) Urine Urobilinogen (Normal) mg/dL Ur Leukocyte Esterase (Negative) Urine Microscopic RBC (0-3) per hpf Urine Microscopic WBC (0-3) per hpf Ur Squamous Epith Cells (None-Few) per lpf Urine Bacteria (None-Few) per hpf Hyaline Casts (None-Few) per lpf Ur Culture Indicated? (NO) Urine Opiates Screen Negative (Dxogkx=720) ng/mL Ur Barbiturates Screen Negative (Gejscu=917) ng/mL Ur Phencyclidine Scrn Negative (Cutoff=25) ng/mL Ur Amphetamines Screen Negative (Nhmsam=9145) ng/mL U Benzodiazepines Scrn Negative (Oknjog=816) ng/mL Urine Cocaine Screen Negative (Cutoff= 300) ng/mL U Marijuana (THC) Screen Negative (Cutoff = 50) ng/mL Ur Drug Screen Interp See Below 08/23/18 08/23/18 08/23/18 Range/Units 04:05 04:05 04:05 WBC (4.3-11.1) K/mcL RBC (3.82-4.97) M/mcL Hgb (11.5-15.4) g/dL Hct (35.3-44.9) % MCV (83.0-100.0) fL MCH (28.0-33.3) pg MCHC (31.6-35.5) g/dL RDW (11.5-14.5) % Plt Count (140-400) K/mcL MPV (9.4-12.4) fL Immature Gran % (0-4) % Seg Neutrophils % % Lymphocytes % % Monocytes % % Eosinophils % % Basophils % % Neutrophils # (1.6-8.9) K/mcL Lymphocytes # (0.6-4.6) K/mcL Monocytes # (0.0-1.3) K/mcL Eosinophils # (0.0-0.6) K/mcL Basophils # (0.0-0.2) K/mcL PT (9.4-12.1) Seconds INR APTT (26.0-36.0) Seconds Sodium 139 (136-145) mEq/L Potassium 3.8 (3.5-5.1) mEq/L Chloride 107 (98-107) mEq/L Carbon Dioxide 24 (23-29) mEq/L BUN 21 H (6-20) mg/dL Creatinine 0.90 (0.60-1.20) mg/dL Est GFR ( Amer) > 60 (> 60) Est GFR (Non-Af Amer) > 60 (> 60) BUN/Creatinine Ratio 23 (6-26) Glucose 103 (70-105) mg/dL POC Glucose (70-99) mg/dL Est Mean Plasma Glucose 123 mg/dl Hemoglobin A1c 5.9 H ( - 5.6) % Calculated Osmolality 291 (280-300) Calcium 9.3 (8.6-10.3) mg/dL Phosphorus 3.2 (2.7-4.5) mg/dL Magnesium 2.0 (1.6-2.6) mg/dL Troponin I (< 0.04) ng/mL Triglycerides 195 H (< 150) mg/dL Cholesterol 272 H (< 200) mg/dL LDL Cholesterol, Calc 195 H (0-99) mg/dL VLDL Cholesterol, Calc 39 H (< 31) mg/dL HDL Cholesterol 38 L (40-59) mg/dL Cholesterol/HDL Ratio 7.2 H (0-4.9) Vitamin B12 324 (250-1100) pg/mL TSH 79.190 H (0.340-5.600) mcIU/mL Urine Color (Yellow) Urine Clarity (Clear) Urine pH (5.0-8.0) pH Units Ur Specific [place] (1.010-1.025) Urine Protein (Neg-Trace) mg/dL Urine Glucose (UA) (Normal) mg/dL Urine Ketones (Negative) mg/dL Urine Blood (Negative) Urine Nitrite (Negative) Urine Bilirubin (Negative) Urine Urobilinogen (Normal) mg/dL Ur Leukocyte Esterase (Negative) Urine Microscopic RBC (0-3) per hpf Urine Microscopic WBC (0-3) per hpf Ur Squamous Epith Cells (None-Few) per lpf Urine Bacteria (None-Few) per hpf Hyaline Casts (None-Few) per lpf Ur Culture Indicated? (NO) Urine Opiates Screen (Vfzehw=276) ng/mL Ur Barbiturates Screen (Ojsxun=325) ng/mL Ur Phencyclidine Scrn (Cutoff=25) ng/mL Ur Amphetamines Screen (Jofxdj=2460) ng/mL U Benzodiazepines Scrn (Sbiwxw=238) ng/mL Urine Cocaine Screen (Cutoff= 300) ng/mL U Marijuana (THC) Screen (Cutoff = 50) ng/mL Ur Drug Screen Interp Attestation Statement - Attestation Attestation: I examined this patient and my medical decision-making was reviewed with the Resident Physician. I agree with the documented findings, disposition and treatment plan as described.
[2018-08-27] MEDS: *HR* Heparin 5,000 UNIT/ML VIAL SQ SCH ×3 (05:41→20:41)
[2018-08-27] MEDS: Metoprolol 100 MG TABLET PO SCH (08:21)
[2018-08-27] MEDS: Verapamil ER (24 HR) 240 MG TABLET.ER PO SCH (08:21)
[2018-08-27] MEDS: Aspirin Enteric Coated 81 MG Tablet PO SCH (08:22)
[2018-08-27] MEDS ORDERED: *HR* LORazepam 1 MG TABLET PO ONE (09:08)
--- NOTE | 2018-08-27 11:57 | Internal Med Progress Note ---
Hospitalist Progress Note - Encounter Date of Encounter: 08/27/18 Time of Encounter: 11:00 - Subjective Interval History: patient was seen and examined at bedside. has no complaints describes no new neurological deficit. tolerating PO diet. pain is controlled. no overnight events. her right arm is still as yesterday. denies increasing weakness, Right lower extremity is still with foot drop no new changes denies fever, chills, N/V/D, chest pain, SOB or palpitations, denies vision changes - Exam Vitals: Temp Pulse Resp BP Pulse Ox 98.1 F 74 14 119/76 99 08/27/18 11:53 08/27/18 11:53 08/27/18 11:53 08/27/18 11:53 08/27/18 11:53 Exam: General: Patient is alert, oriented, no acute distress, obese Head: atraumatic, normocephalic, Eye: normal appearance, PERRL, no scleral icterus, no conjunctival injection ENT: mucous membranes moist, normal external ear exam Neck: normal inspection, trachea midline, full ROM, no carotid bruits Chest: normal inspection, symmetric chest rise Respiratory: Good respiratory effort. Bilateral breath sounds are clear without wheezing, crackles, or rhonchi. Cardiovascular: Regular rate and rhythm. s1 and s2 No clicks, rubs, gallops, or murmors. Abdomen: Bowel sounds present normoactive x-4 quadrants. Abdomen is soft, nond istended. no Epigastric tenderness. No guarding or rebound. No organomegaly noted, obese musculoskeletal: Spontaneously moving all extremities. no edema, no calf tenderness Skin: warm, dry, intact. Neuro: Alert and oriented x3, speech is comprehendible. has right foot drop strength in the RLE 4/5 and 2/5 strength in the right upper extremity and 5/5 in the left extremities, mild facial droop as per family at bedside (have noticed since she has been here) however its more noticeable now . Psych: Patient's affect is normal - Assessment and Plan (1) Acute lacunar stroke Current Visit: Yes Status: Acute Assessment and Plan: Acute lacunar infarct within the left medullary pyramid. on 08/22 repeat worsening weakness on 08/26- repeat CT head stable neurology on board - "Patient likely not a candidate for any TPA at this time as she already had a infarct on imaging studies Suggest to keep blood pressure slightly higher to avoid hypoperfusion" both neurology and i discussed with patient about need to have repeat MRI she wanted to wait and think about it over night. i discussed with patient on 08/27 AM again and she agreed to attempt MRI with medication to help her anxiety. MRI on 08/27 now with extension of the medullary stroke and new acute right c erebellar stroke along with old occipital infarct. Holding all BP meds for now NS at 75 cc per hour will continue to monitor her with neurochecks Q3H received ASA 325 mg but it was changed to ASA and plavix on 08/26discussed with Dr. Brunson lipitor 80 mg QHS will get FERNANDA in AM NPO at midnight tele monitoring - no Atrial fibrillation have been seen by myself and the nursing staff Lipid panel, TSH, A1c reviewed will adjust medications Neuro checks as per protocol Keep systolic BP <220 and diastolic BP <120 mmHg Maintain LDL less than 75 PT/OT evaluation fall aspiration seizure precautions cardiology consulted for further management DVT prophylaxis MRI head and MRA head and neck from 08/22- reviewed showing acute lacunar infarct within the left medullary. repeat MRI on 08/27- IMPRESSION: 1. Interval increase in size of the patient's known medullary infarct now extending to the midline. 2. New acute 1 cm infarct within the right cerebellar hemisphere. 3. No acute intracranial hemorrhage. 4. Moderate chronic small vessel ischemic changes, unchanged. 5. Remote right occipital infarct. TTE: Impressions: Technically sub-optimal due to poor echocardiographic windows. LVEF 55%. Normal LV chamber size, wall thickness and function. Mild left ventricular diastolic dysfunction. Normal right ventricular structure and function. Interatrial septum not well evaluated. Saline contrast not optimal in this study. Consider FERNANDA if no contraindications. No significant valvular dysfunction. Unable to estimate RVSP due to lack of TR jet. carotid doppler: Findings: Bilateral carotid system has nonstenotic plaque. (2) Cerebellar stroke, acute Current Visit: Yes Status: Acute Assessment and Plan: New acute 1 cm infarct within the right cerebellar hemisphere on MRI from 08/[address] head performed on 08/26 with IMPRESSION: Possible small focus of hypodensity along the left medullary pyramid, which correlates with the known infarct in this region. No evidence of acute hemorrhage. ? cardioembolic discussed case with Dr. Brunson continue ASA, plavix and lipitor FERNANDA in AM NPO at midnight cardiology consulted will follow recommendations neurology recs appreciated tele monitor reviewed by myself and was unable to appreciate any Atrial fib. nursing staff also checked tele- no evidence of Atrial fib. continue management as above MRI 08/27 IMPRESSION: 1. Interval increase in size of the patient's known medullary infarct now extending to the midline. 2. New acute 1 cm infarct within the right cerebellar hemisphere. 3. No acute intracranial hemorrhage. 4. Moderate chronic small vessel ischemic changes, unchanged. 5. Remote right occipital infarct. The findings were sent to the Radiology Results Communication [facility] at 11:00 am on 08/27/2018to be communicated to a licensed caregiver. (3) Diplopia Current Visit: Yes Status: Acute Assessment and Plan: ? secondary to CVA neurology on board will follow recs Regimen as above To have formal ophthalmology evaluation as outpatient bp control MRI with remote infarct in the right occipital lobe. (4) Hypothyroidism Current Visit: Yes Status: Acute Assessment and Plan: TSH elevated 79.1 Synthroid dose increased to 88 g for PCP to follow TFTs in 4 weeks and adjust (5) History of CVA (cerebrovascular accident) Current Visit: Yes Status: Acute Assessment and Plan: as per patient she has had hemorrhagic stroke in the past without any residual deficit CT head negative for any acute ICH (6) Obesity (BMI 30-39.9) Current Visit: Yes Status: Acute Assessment and Plan: was counseled on diet and nutrition along with exercise. (7) Tobacco abuse disorder Current Visit: Yes Status: Acute Assessment and Plan: Was counseled (8) Pre-diabetes Current Visit: Yes Status: Acute Assessment and Plan: i discussed diet and exercise with patient to have 1c followed (9) Hypertension Current Visit: Yes Status: Acute Assessment and Plan: holding all BP meds for now as she has an acute stroke (10) DVT prophylaxis Current Visit: Yes Status: Acute Assessment and Plan: heparin sc - Time Spent with Patient Total time spent is greater than 50% in coordination of care (as documented) at patient's floor/unit and/or counseling patient: Internal Medicine: Result - Labs CBC & Chem 7: 08/23/18 04:05 08/23/18 04:05 - ABG Interpretation ABG results: PT/INR, D-dimer PT 11.2 Seconds (9.4-12.1) 08/22/18 14:18 - Impressions Impressions Brain MRI 08/27/18 09:03 IMPRESSION: 1. Interval increase in size of the patient's known medullary infarct now extending to the midline. 2. New acute 1 cm infarct within the right cerebellar hemisphere. 3. No acute intracranial hemorrhage. 4. Moderate chronic small vessel ischemic changes, unchanged. 5. Remote right occipital infarct. The findings were sent to the Radiology Results Communication Center at 11:00 am on 08/27/2018to be communicated to a licensed caregiver. D/ / 08/27/2018 11:02:52 Cale Leal MD / dilma Interpreting Provider: Cale Leal MD Consult Discharge Plan - Plan Referrals: Ludy Bain CNP [Primary Care Provider] - 09/03/18 1:00 pm Prescriptions: Aspirin 325 mg PO DAILY #30 tablet Atorvastatin [Lipitor] 80 mg PO HS #30 tablet Levothyroxine [Synthroid] 88 mcg PO DAILY@0630 #30 tablet Losartan [Cozaar] 100 mg PO DAILY #30 tablet (4) Hypothyroidism Qualifiers: Hypothyroidism type: acquired Qualified Code(s): E03.9 - Hypothyroidism, unspecified (9) Hypertension Qualifiers: Hypertension type: essential hypertension Qualified Code(s): I10 - Essential (primary) hypertension
--- NOTE | 2018-08-27 12:42 | Cardiology Consult Note ---
Date of Encounter: 08/27/18 Time of Encounter: 12:39 Assessment and Plan (1) Acute CVA (cerebrovascular accident) Current Visit: Yes Status: Acute Per cardiology: -Admitted with acute CVA, initial brain MRI with acute lacunar infarct. -Patient then reported worsening symptoms and MRI was repeated. -Repeat brain MRI with with acute right cellebellar infarct. -TTE with LVEF 55%, mild diastolic dysfunction, no wall motion abnormalities. Normal left atrium and right atrium size. Interatrial septum not well visualized on TTE, consider FERNANDA. -FERNANDA ordered per primary team. -Denies previous history of a.fib/flutter. Does report occasional palpitations. -ECG and telemetry reviewed with no evidence of a.fib noted. -With multiple areas of acute infarct, Agree with FERNANDA to evaluate interatrial septum to rule out PFO. -Pending results of FERNANDA, can consider EP consult for consideration of LOOP recorder. (2) Hypertension Current Visit: Yes Status: Chronic Per cardiology: -Known HTN. -Medications being adjusted per primary service. Qualifiers: Hypertension type: essential hypertension Qualified Code(s): I10 - Hayde boyce (primary) hypertension Discussion w patient/family: The assessment and plan as outlined above was discussed with the patient who expressed understanding and agreement. All questions were answered. Thank you for involving us in the care of your patient. Please call with any questions. Discussed and reviewed with . History of Present Illness Consult date: 08/27/18 Requesting physician: Namita Hernandez Consult reason: multiple cvas Chief complaint: diplopia History of present illness: Ms. Osullivan is a 57 year old female with a relevant past medical history of mutliple CVAs, hemorrhagic CVA, HTN, [place], hypothyroidism s/p thyroidectomy, tobacco abuse, chairi malformation who presented to [facility] with complaints of diplopia and right sided weakness. Patient denies chest pain, shortness of breath. Reports right sided weakness is getting worse. Also reports difficulty speaking, forming thoughts. Reports does have intermittent palpitations on occasion. Denies previous history of a.fib/flutter. Past Med Surg Social Fam HX - Past Medical History Attestation: Yes The following information was validated with the patient. Source: patient, old records reviewed Medical history: CVA, hypertension, migraine, myocardial infarction, thyroid disease Psychiatric history: depression - Past Surgical History Surgical History: hysterectomy, thyroidectomy Additional surgical history: Cardioangioplasty, bladder sling - Social History Smoking Status: Current every day smoker Packs per day: 1- 1 12 Smokeless Tobacco Status: No Alcohol use: none Drug use: none - Family History Mother Living Status: Age at : 74 Cause of : Cancer Hx Family Cardiac Disorders: Yes Hx Family Cancer: Yes (Lung, throat) Medications and Allergies Acetaminophen [Tylenol] 650 mg PO BID PRN 08/22/18 [History] Amitriptyline [Elavil] 25 mg PO HS 08/22/18 [History] Duloxetine HCl [Cymbalta] 60 mg PO DAILY 08/22/18 [History] Metoprolol Tartrate 100 mg PO BID 08/22/18 [History] Verapamil ER (24 HR) [Calan SR] 240 mg PO DAILY 08/22/18 [History] Aspirin 325 mg PO DAILY #30 tablet 08/25/18 [Rx] Atorvastatin [Lipitor] 80 mg PO HS #30 tablet 08/25/18 [Rx] Levothyroxine [Synthroid] 88 mcg PO DAILY@0630 #30 tablet 08/25/18 [Rx] Losartan [Cozaar] 100 mg PO DAILY #30 tablet 08/25/18 [Rx] Allergy/AdvReac Type Severity Reaction Status Date / Time No Known Allergies Allergy Verified 08/22/18 15:34 All Systems Review: The remainder of the systems were reviewed and are negative - Constitutional Constitutional: weakness - EENT Eyes: blurred vision - Cardiovascular Cardiovascular: as per HPI, palpitations Physical Examination Vital Signs, Last 4 Hours Temp Pulse Resp BP Pulse Ox 08/27/18 11:53 98.1 F 74 14 119/76 99 General: Conversant, No Apparent Distress, Other (Speech slowed. ) HEENT: Atraumatic, Normocephaly, Mucus Membranes Moist Neck: No JVD, Normal carotid pulses Cardiac: Reg Rate and Rhythm, Normal S1 and S2, No Murmur Lungs: Normal Breath Sounds, No Wheeze, Rales, Rhonchi Neuro: Alert and responsive, No focal deficits noted Abdomen: Soft, Non-Tender Skin: No rashes noted on visualized skin Musculoskeletal: No Chest Wall Tenderness, Other (Right sided weakness noted. ) Extremities: No Clubbing, No Cyanosis, No Edema, Normal Pulses Results 08/23/18 04:05 08/23/18 04:05 Impressions Brain MRI 08/27/18 09:03 IMPRESSION: 1. Interval increase in size of the patient's known medullary infarct now extending to the midline. 2. New acute 1 cm infarct within the right cerebellar hemisphere. 3. No acute intracranial hemorrhage. 4. Moderate chronic small vessel ischemic changes, unchanged. 5. Remote right occipital infarct. The findings were sent to the Radiology Results Communication Center at 11:00 am on 08/27/2018to be communicated to a licensed caregiver. D/ : / 08/27/2018 11:02:52 Cale Leal MD / [facility] Interpreting Provider: aCle Leal MD Active Medications Acetaminophen (Tylenol) 650 mg PO Q6HR PRN PRN Reason: fever GREATER than 101.2 F Stop: 02/21/19 14:08 Last Admin: 08/23/18 15:25 Dose: 650 mg Amitriptyline HCl (Elavil) 25 mg PO HS [facility] Stop: 02/21/19 21:01 Last Admin: 08/26/18 20:53 Dose: 25 mg Aspirin (Aspirin Ec) 81 mg PO DAILY [facility] Stop: 02/26/19 09:01 Last Admin: 08/27/18 08:22 Dose: 81 mg Atorvastatin Calcium (Lipitor) 80 mg PO HS [facility] Stop: 02/21/19 21:01 Last Admin: 08/26/18 20:53 Dose: 80 mg Clopidogrel Bisulfate (Plavix) 75 mg PO DAILY [facility] Stop: 02/25/19 16:01 Last Admin: 08/27/18 08:22 Dose: 75 mg Duloxetine HCl (Cymbalta) 60 mg PO DAILY [facility] Stop: 02/22/19 09:01 Last Admin: 08/27/18 08:22 Dose: 60 mg Heparin Sodium (Porcine) (Heparin) 5,000 unit SQ Q8HCO [facility] Stop: 02/21/19 14:12 Last Admin: 08/27/18 05:41 Dose: 5,000 unit Sodium Chloride (0.9 % Sodium Chloride) 1,000 mls @ 75 mls/hr IVC .[id number] [facility] Stop: 02/26/19 12:16 Levothyroxine Sodium (Synthroid) 88 mcg PO DAILY@0630 [facility] Stop: 02/23/19 06:31 Last Admin: 08/27/18 05:42 Dose: 88 mcg Naloxone HCl (Narcan) 0.4 mg IVP Q2MIN PRN PRN Reason: SEE COMMENTS Stop: 02/21/19 14:08 Laboratory Tests 08/22/18 08/23/18 10:04 04:05 Troponin I < 0.03 TSH 79.190 H - Imaging and Cardiology Chest Xray: report reviewed Echo: report reviewed - EKG Interpretation EKG results cardiology: personally reviewed (ECG with SR, HR 60, diffuse T wave abnormalities noted.), other (Telemetry reviewed with average HR previous 24 hours noted to be 63, SR. PVCs and PACs noted.) Consult Discharge Plan - Plan Referrals: Ludy Bain, ARCHANA [Primary Care Provider] - 09/03/18 1:00 pm Prescriptions: Aspirin 325 mg PO DAILY #30 tablet Atorvastatin [Lipitor] 80 mg PO HS #30 tablet Levothyroxine [Synthroid] 88 mcg PO DAILY@0630 #30 tablet Losartan [Cozaar] 100 mg PO DAILY #30 tablet
[2018-08-27] MEDS: 0.9 % Sodium Chloride 1,000 ML IVC SCH (14:19)
--- NOTE | 2018-08-27 15:45 | Neurology Progress Note ---
Date of Encounter: 08/27/18 Time of Encounter: 09:00 Assessment and Plan (1) Acute CVA (cerebrovascular accident) Current Visit: Yes Status: Acute Patient noted to have a increasing weakness of the right upper extremity though initially she did have a right arm weakness but this morning seems to be more pronounced it is possible she could have an extension of the infarct but on the other hand it could be due to hypoperfusion as she is on few blood pressure medication. As blood pressure might need to be stabilize and significantly low blood pressure can cause worsening of the weakness. MRI of the brain confirmed extension of the medullary infarct but at the same time there is a new infarct in the cerebellar hemisphere she already had MRA of the head that did not show any intracranial stenosis neither any significant stenosis in the posterior circulation though echocardiogram did not show any obvious embolic source but was limited study considering doubt she had this new event without any typical signs and symptoms of atrial fibrillation I would recommend that patient should had a FERNANDA at the same time be continue need to monitor her for any atrial fibrillation as she may need anticoagulation currently she is on aspirin and platelet suggest to continue and continue monitor for any cardiac arrhythmias cardiology services are also following the patient Also recommend that we should hold her blood pressure medication unless she has significant hypertension as low blood pressure is also likely contributing to her weakness We will follow the patient with you (2) Diplopia Current Visit: Yes Status: Acute (3) History of CVA (cerebrovascular accident) Current Visit: Yes Status: Acute Subjective Interval history: Patient continued to have weakness of the right upper and lower extremities she is also having fluctuating blood pressure was significantly low blood pressure this morning 90/50 , beside that she denies any other new symptoms since yesterday She did have an MRI of the brain which confirms new stroke as well as extension of her medullary infarct according to the report Interval increase in size of the patient's known medullary infarct now extending to the midline. 2. New acute 1 cm infarct within the right cerebellar hemisphere. 3. No acute intracranial hemorrhage. 4. Moderate chronic small vessel ischemic changes, unchanged. 5. Remote right occipital infarct. Objective - Constitutional Vitals: Temp Pulse Resp BP Pulse Ox 98.1 F 74 14 119/76 99 08/27/18 11:53 08/27/18 11:53 08/27/18 11:53 08/27/18 11:53 08/27/18 11:53 - Neurological Exam Sensorimotor examination: Present: intact Motor Examination: Present: grossly full strength in all extremities Motor examination - right side: 2/5: deltoids, biceps, triceps, wrist flexion, wrist extension, 3/5: curing bin operator, hip flexors, tibialis Anterior, quadriceps, toe extension (EHL), plantarflexion Motor examination - left side: 5/5: deltoids, biceps, triceps, wrist flexion, wrist extension, hip flexors, curing bin operator, quadriceps, tibialis Anterior, toe extension (EHL), plantarflexion Sensation intact: Present: intact Reflex and gait examination: intact Reflexes: Biceps: 1+, Triceps: 1+, Brachioradialis: 1+ Mental Status Examination: Present: awake, alert, oriented to person, oriented to place, oriented to time, answers questions appropriately Cranial nerve examination: Present: PERRL, EOMI, visual mitchell intact, mastication intact, no facial asymmetry is present, no dysarthria Cerebellar examination: Present: no dysmetria Results - Laboratory Findings CBC and BMP: 08/23/18 04:05 08/23/18 04:05 Abnormal lab findings: Abnormal lab results Hct 45.4 % (35.3-44.9) H 08/23/18 04:05 BUN 21 mg/dL (6-20) H 08/23/18 04:05 POC Glucose 110 mg/dL (70-99) H 08/22/18 20:30 Hemoglobin A1c 5.9 % (-5.6) H 08/23/18 04:05 Triglycerides 195 mg/dL (< 150) H 08/23/18 04:05 Cholesterol 272 mg/dL (< 200) H 08/23/18 04:05 LDL Cholesterol, Calc 195 mg/dL (0-99) H 08/23/18 04:05 VLDL Cholesterol, Calc 39 mg/dL (< 31) H 08/23/18 04:05 HDL Cholesterol 38 mg/dL (40-59) L 08/23/18 04:05 Cholesterol/HDL Ratio 7.2 (0-4.9) H 08/23/18 04:05 TSH 79.190 mcIU/mL (0.340-5.600) H 08/23/18 04:05 Ur Squamous Epith Cells Many per lpf (None-Few) H 08/22/18 11:08 - Diagnostic Findings Additional findings: Interval increase in size of the patient's known medullary infarct now extending to the midline. 2. New acute 1 cm infarct within the right cerebellar hemisphere. 3. No acute intracranial hemorrhage. 4. Moderate chronic small vessel ischemic changes, unchanged. 5. Remote right occipital infarct. Consult Discharge Plan - Plan Referrals: Ludy Bain CNP [Primary Care Provider] - 09/03/18 1:00 pm Prescriptions: Aspirin 325 mg PO DAILY #30 tablet Atorvastatin [Lipitor] 80 mg PO HS #30 tablet Levothyroxine [Synthroid] 88 mcg PO DAILY@0630 #30 tablet Losartan [Cozaar] 100 mg PO DAILY #30 tablet
[2018-08-28] MEDS: 0.9 % Sodium Chloride 1,000 ML IVC SCH (04:08)
[2018-08-28] MEDS: *HR* Heparin 5,000 UNIT/ML VIAL SQ SCH ×3 (05:13→22:14)
--- NOTE | 2018-08-28 09:18 | Electrophysiology Consult Note ---
<Shantal Rush - Last Filed: 08/28/18 09:48> Date of Encounter: 08/28/18 Time of Encounter: 09:00 Assessment and Plan (1) Cryptogenic stroke Current Visit: Yes Status: Acute Admitted with acute CVA, initial brain MRI with acute lacunar infarct, patient then reported worsening symptoms therefore MRI repeated and demonstrated acute right cellebellar infarct. EP consulted for consideration of ILR due to history of multiple, recurrent CVA 's without clear etiology. TTE this admission shows LVEF 55%, mild LVDD, no significant valvular dy sfunction, interatrial septum not well visualized. FERNANDA pending for this AM. No hx of afib/flutter or arrhythmia. Patient does report occasional episodes of palpitations, resolve without intervention. Telemetry reviewed since admission, no evidence of PAF or arrhythmia noted. Discussed with Dr. Bo Wisdom; recommend internal loop recorder implant as inpatient. Patient is agreeable, will proceed with ILR today. Of note, TSH is markedly abnormal, will defer to primary team to manage. Discussion w patient/family: The assessment and plan as outlined above was discussed with the patient and/or family members who expressed understanding and agreement. All questions were answered. Thank you for involving us in the care of your patient. Please call with any questions. The patient will be discussed and reviewed with Dr. Bo Wisdom; changes to be made accordingly. History of Present Illness Consult date: 08/28/18 Requesting physician: Brady South Consult reason: ILR placement Chief complaint: CVA History of present illness: Ms. Osullivan is a 57 year old female with a past medical history of multiple CVA's (including hemorrhagic CVA), HTN, [place], hypothyroidism s/p thyroidectomy, tobacco abuse, chairi malformation who presented to [facility] with complaints of diplopia and right sided weakness. Patient denies chest pain, shortness of breath. Reports right sided weakness is getting worse. Also reports difficulty speaking, forming thoughts. Reports does have intermittent palpitations on occasion, does not limit activity and typically resolve without intervention. Denies previous history of a.fib/flutter. No significant findings on surface echocardiogram, plan for FERNANDA today. EP consulted today for consideration of internal loop recorder implant prior to discharge for cryptogenic CVA. Past Med Surg Social Fam HX - Past Medical History Attestation: Yes The following information was validated with the patient. Source: patient Medical history: CVA, hypertension, migraine, myocardial infarction (without stents, early ), thyroid disease Psychiatric history: depression - Past Surgical History Surgical History: hysterectomy, thyroidectomy Additional surgical history: Cardioangioplasty, bladder sling - Social History Smoking Status: Current every day smoker Packs per day: 1- 08/13 Smokeless Tobacco Status: No Alcohol use: none Drug use: none - Family History Brother Living Status: Still Living Hx Family Endocrine Disorder: Yes (DM) Father Living Status: Still Living Hx Family Cardiac Disorders: Yes (HTN) Mother Living Status: Age at : 74 Cause of : Cancer Hx Family Cardiac Disorders: Yes Hx Family Cancer: Yes (Lung, throat) Medications and Allergies RX: Acetaminophen [Tylenol] 650 mg PO BID PRN 08/22/18 [History] RX: Amitriptyline [Elavil] 25 mg PO HS 08/22/18 [History] RX: Duloxetine HCl [Cymbalta] 60 mg PO DAILY 08/22/18 [History] RX: Metoprolol Tartrate 100 mg PO BID 08/22/18 [History] RX: Verapamil ER (24 HR) [Calan SR] 240 mg PO DAILY 08/22/18 [History] RX: Aspirin 325 mg PO DAILY #30 tablet 08/25/18 [Rx] RX: Atorvastatin [Lipitor] 80 mg PO HS #30 tablet 08/25/18 [Rx] RX: Levothyroxine [Synthroid] 88 mcg PO DAILY@0630 #30 tablet 08/25/18 [Rx] RX: Losartan [Cozaar] 100 mg PO DAILY #30 tablet 08/25/18 [Rx] Allergy/AdvReac Type Severity Reaction Status Date / Time No Known Allergies Allergy Verified 08/22/18 15:34 All Systems Review: The remainder of the systems were reviewed and are negative - Cardiovascular Cardiovascular: as per HPI Physical Examination Vital Signs, Last 4 Hours Temp Pulse Resp BP Pulse Ox 08/28/18 07:25 98.3 F 97 17 151/101 94 General: Conversant, No Apparent Distress HEENT: Atraumatic, Normocephaly, Mucus Membranes Moist Cardiac: Reg Rate and Rhythm, Normal S1 and S2 Lungs: Normal Breath Sounds Neuro: Alert and responsive Abdomen: Soft Skin: No rashes noted on visualized skin Musculoskeletal: No Chest Wall Tenderness Extremities: No Edema, Normal Pulses Results 08/23/18 04:05 08/23/18 04:05 Active Medications Acetaminophen (Tylenol) 650 mg PO Q6HR PRN PRN Reason: fever GREATER than 101.2 F Stop: 02/21/19 14:08 Last Admin: 08/23/18 15:25 Dose: 650 mg Amitriptyline HCl (Elavil) 25 mg PO HS [facility] Stop: 02/21/19 21:01 Last Admin: 08/27/18 20:40 Dose: 25 mg Aspirin (Aspirin Ec) 81 mg PO DAILY [facility] Stop: 02/26/19 09:01 Last Admin: 08/27/18 08:22 Dose: 81 mg Atorvastatin Calcium (Lipitor) 80 mg PO HS [facility] Stop: 02/21/19 21:01 Last Admin: 08/27/18 20:40 Dose: 80 mg Clopidogrel Bisulfate (Plavix) 75 mg PO DAILY [facility] Stop: 02/25/19 16:01 Last Admin: 08/27/18 08:22 Dose: 75 mg Duloxetine HCl (Cymbalta) 60 mg PO DAILY [facility] Stop: 02/22/19 09:01 Last Admin: 08/27/18 08:22 Dose: 60 mg Heparin Sodium (Porcine) (Heparin) 5,000 unit SQ Q8HCO [facility] Stop: 02/21/19 14:12 Last Admin: 08/28/18 05:13 Dose: 5,000 unit Sodium Chloride (0.9 % Sodium Chloride) 1,000 mls @ 75 mls/hr IVC .[id number] [facility] Stop: 02/26/19 12:16 Last Admin: 08/28/18 04:08 Dose: 75 mls/hr Levothyroxine Sodium (Synthroid) 88 mcg PO DAILY@0630 [facility] Stop: 02/23/19 06:31 Last Admin: 08/27/18 05:42 Dose: 88 mcg Naloxone HCl (Narcan) 0.4 mg IVP Q2MIN PRN PRN Reason: SEE COMMENTS Stop: 02/21/19 14:08 - Imaging and Cardiology Echo: report reviewed Other Results: 24 tele: avg HR 94 SR. No PAF, arrhythmia, dysrhythmia noted. - EKG Interpretation EKG results cardiology: personally reviewed Consult Discharge Plan - Plan Referrals: Ludy Bain, [employer]ONEM[employer] SUPERVISOR [Primary Care Provider] - 09/03/18 1:00 pm Prescriptions: RX: Aspirin 325 mg PO DAILY #30 tablet RX: Atorvastatin [Lipitor] 80 mg PO HS #30 tablet RX: Levothyroxine [Synthroid] 88 mcg PO DAILY@0630 #30 tablet RX: Losartan [Cozaar] 100 mg PO DAILY #30 tablet <Bo Wisdom - Last Filed: 08/28/18 10:51> Date of Encounter: 08/28/18 - Attending Attestation I have personally performed a face to face evaluation on this patient. I have reviewed and agree with the care plan. History and Exam by me shows: Cryptogenic stroke, loop recorder indicated. Assessment and Plan Discussion w patient/family: The assessment and plan as outlined above was discussed with the patient and/or family members who expressed understanding and agreement. All questions were answered. Thank you for involving us in the care of your patient. Please call with any questions. History of Present Illness History of present illness: Ms. Osullivan is a 57 year old female All Systems Review: The remainder of the systems were reviewed and are negative Physical Examination Vital Signs, Last 4 Hours Temp Pulse Resp BP Pulse Ox 08/28/18 10:01 97.8 F 81 14 192/114 97 08/28/18 07:25 98.3 F 97 17 151/101 94 Results 08/23/18 04:05 08/23/18 04:05
--- NOTE | 2018-08-28 09:26 | Neurology Progress Note ---
Date of Encounter: 08/28/18 Time of Encounter: 07:30 Assessment and Plan (1) Acute CVA (cerebrovascular accident) Current Visit: Yes Status: Acute Considering that she had next tension of her medullary infarct but at the same type she get an other infarct in the posterior circulation I would strongly recommend that patient should get a FERNANDA for any embolic source from the heart as she did not have any vascular stenosis in intracranial circulation Currently she is on aspirin and Plavix along with statin suggested to continue I agreed with the fountain waitress/waiter Dr. Wisdom about loop recorder as she could be having paroxysmal A. fib as at this time we do not have any other explanation for her extended infarct Recommend FERNANDA today and Loop recorder as per cardiology (2) Diplopia Current Visit: Yes Status: Acute (3) History of CVA (cerebrovascular accident) Current Visit: Yes Status: Acute Subjective Interval history: Patient continued to have weakness of the right upper and lower extremities she is also having fluctuating blood pressure was significantly low blood pressure this morning 90/50 , beside that she denies any other new symptoms since yesterday She did have an MRI of the brain which confirms new stroke as well as extension of her medullary infarct according to the report Interval increase in size of the patient's known medullary infarct now extending to the midline. 2. New acute 1 cm infarct within the right cerebellar hemisphere. 3. No acute intracranial hemorrhage. 4. Moderate chronic small vessel ischemic changes, unchanged. 5. Remote right occipital infarct. Objective - Constitutional Vitals: Temp Pulse Resp BP Pulse Ox 98.3 F 97 17 151/101 94 08/28/18 07:25 08/28/18 07:25 08/28/18 07:25 08/28/18 07:25 08/28/18 07:25 - Neurological Exam Sensorimotor examination: Present: intact Motor Examination: Present: grossly full strength in all extremities Motor examination - left side: 5/5: deltoids, biceps, triceps, wrist flexion, wrist extension, hip flexors, transportation consultant, quadriceps, tibialis Anterior, toe extension (EHL), plantarflexion Sensation intact: Present: intact Reflex and gait examination: intact Mental Status Examination: Present: awake, alert, oriented to person, oriented to place, oriented to time, answers questions appropriately Cranial nerve examination: Present: PERRL, EOMI, visual mitchell intact, mastication intact, no facial asymmetry is present, no dysarthria Cerebellar examination: Present: no dysmetria Results - Laboratory Findings CBC and BMP: 08/23/18 04:05 08/23/18 04:05 Abnormal lab findings: Abnormal lab results Hct 45.4 % (35.3-44.9) H 08/23/18 04:05 BUN 21 mg/dL (6-20) H 08/23/18 04:05 POC Glucose 110 mg/dL (70-99) H 08/22/18 20:30 Hemoglobin A1c 5.9 % (-5.6) H 08/23/18 04:05 Triglycerides 195 mg/dL (< 150) H 08/23/18 04:05 Cholesterol 272 mg/dL (< 200) H 08/23/18 04:05 LDL Cholesterol, Calc 195 mg/dL (0-99) H 08/23/18 04:05 VLDL Cholesterol, Calc 39 mg/dL (< 31) H 08/23/18 04:05 HDL Cholesterol 38 mg/dL (40-59) L 08/23/18 04:05 Cholesterol/HDL Ratio 7.2 (0-4.9) H 08/23/18 04:05 TSH 79.190 mcIU/mL (0.340-5.600) H 08/23/18 04:05 Ur Squamous Epith Cells Many per lpf (None-Few) H 08/22/18 11:08 Consult Discharge Plan - Plan Referrals: Ludy Bain CNP [Primary Care Provider] - 09/03/18 1:00 pm Prescriptions: Aspirin 325 mg PO DAILY #30 tablet Atorvastatin [Lipitor] 80 mg PO HS #30 tablet Levothyroxine [Synthroid] 88 mcg PO DAILY@0630 #30 tablet Losartan [Cozaar] 100 mg PO DAILY #30 tablet
[2018-08-28] MEDS ORDERED: Lidocaine Viscous Oral Soln 15 ML SOLUTION MM PRN (09:47)
[2018-08-28] MEDS ORDERED: Tetracaine/Benzocaine/Butamben 1 SPRAY AEROSOL MM ONE (09:47)
[2018-08-28] MEDS ORDERED: 0.9 % Sodium Chloride 500 ML IVC ONE (09:47)
[2018-08-28] MEDS: *HR* FentaNYL (PF) 100 MCG/2 ML VIAL IVP PRN ×3 (10:30→11:00)
[2018-08-28] MEDS: *HR* Midazolam HCl 5 MG/5 ML VIAL IVP PRN ×2 (10:30→10:45)
[2018-08-28] MEDS: Aspirin Enteric Coated 81 MG Tablet PO SCH (12:09)
--- NOTE | 2018-08-28 13:27 | Internal Med Progress Note ---
Hospitalist Progress Note - Encounter Date of Encounter: 08/28/18 Time of Encounter: 13:20 - Subjective Interval History: patient was seen and examined at bedside. has no complaints describes no new neurological deficit. tolerating PO diet. pain is controlled. no overnight events. her right arm is still as yesterday. denies increasing weakness, Right lower extremity is still with foot drop no new changes denies fever, chills, N/V/D, chest pain, SOB or palpitations, denies vision changes - Exam Vitals: Temp Pulse Resp BP Pulse Ox 97.9 F 99 17 153/85 97 08/28/18 11:46 08/28/18 11:46 08/28/18 11:46 08/28/18 11:46 08/28/18 11:46 Exam: General: Patient is alert, oriented, no acute distress, obese Head: atraumatic, normocephalic, Eye: normal appearance, PERRL, no scleral icterus, no conjunctival injection ENT: mucous membranes moist, normal external ear exam Neck: normal inspection, trachea midline, full ROM, no carotid bruits Chest: normal inspection, symmetric chest rise Respiratory: Good respiratory effort. Bilateral breath sounds are clear without wheezing, crackles, or rhonchi. Cardiovascular: Regular rate and rhythm. s1 and s2 No clicks, rubs, gallops, or murmors. Abdomen: Bowel sounds present normoactive x-4 quadrants. Abdomen is soft, nond istended. no Epigastric tenderness. No guarding or rebound. No organomegaly noted, obese musculoskeletal: Spontaneously moving all extremities. no edema, no calf tenderness Skin: warm, dry, intact. Neuro: Alert and oriented x3, speech is comprehendible. has right foot drop strength in the RLE 4/5 and 2/5 strength in the right upper extremity and 5/5 in the left extremities, mild facial droop as per family at bedside (have noticed since she has been here) however its more noticeable now . Psych: Patient's affect is normal - Assessment and Plan (1) Acute lacunar stroke Current Visit: Yes Status: Acute Assessment and Plan: Acute lacunar infarct within the left medullary pyramid. on 08/22 repeat worsening weakness on 08/26- repeat CT head stable neurology on board - "Patient likely not a candidate for any TPA at this time as she already had a infarct on imaging studies Suggest to keep blood pressure slightly higher to avoid hypoperfusion" both neurology and i discussed with patient about need to have repeat MRI she wanted to wait and think about it over night. i discussed with patient on 08/27 AM again and she agreed to attempt MRI with medication to help her anxiety. MRI on 08/27 now with extension of the medullary stroke and new acute right c erebellar stroke along with old occipital infarct. Holding all BP meds for now NS at 75 cc per hour will continue to monitor her with neurochecks Q3H received ASA 325 mg but it was changed to ASA and plavix on 08/26discussed with Dr. Brunson lipitor 80 mg QHS FERNANDA without any thrombus EP consulted for loop recorder placement NPO - will continue diet post procedures. tele monitoring - no Atrial fibrillation have been recorded Lipid panel, TSH, A1c reviewed will adjust medications Neuro checks as per protocol Keep systolic BP <220 and diastolic BP <120 mmHg Maintain LDL less than 75 PT/OT evaluation fall aspiration seizure precautions cardiology consulted for further management DVT prophylaxis MRI head and MRA head and neck from 08/22- reviewed showing acute lacunar infarct within the left medullary. repeat MRI on 08/27- IMPRESSION: 1. Interval increase in size of the patient's known medullary infarct now extending to the midline. 2. New acute 1 cm infarct within the right cerebellar hemisphere. 3. No acute intracranial hemorrhage. 4. Moderate chronic small vessel ischemic changes, unchanged. 5. Remote right occipital infarct. TTE: Impressions: Technically sub-optimal due to poor echocardiographic windows. LVEF 55%. Normal LV chamber size, wall thickness and function. Mild left ventricular diastolic dysfunction. Normal right ventricular structure and function. Interatrial septum not well evaluated. Saline contrast not optimal in this study. Consider FERNANDA if no contraindications. No significant valvular dysfunction. Unable to estimate RVSP due to lack of TR jet. carotid doppler: Findings: Bilateral carotid system has nonstenotic plaque. (2) Cerebellar stroke, acute Current Visit: Yes Status: Acute Assessment and Plan: New acute 1 cm infarct within the right cerebellar hemisphere on MRI from 08/[address] head performed on 08/26 with IMPRESSION: Possible small focus of hypodensity along the left medullary pyramid, which correlates with the known infarct in this region. No evidence of acute hemorrhage. FERNANDA negative for thrombus - Doubt cardio embolic discussed case with Dr. Brunson continue ASA, plavix and lipitor EP on board for loop recorder cardiology and neurology recs appreciated tele monitor no evidence of Atrial fib. continue management as above MRI 08/27 IMPRESSION: 1. Interval increase in size of the patient's known medullary infarct now extending to the midline. 2. New acute 1 cm infarct within the right cerebellar hemisphere. 3. No acute intracranial hemorrhage. 4. Moderate chronic small vessel ischemic changes, unchanged. 5. Remote right occipital infarct. The findings were sent to the Radiology [facility] at 11:00 am on 08/27/2018to be communicated to a licensed caregiver. (3) Diplopia Current Visit: Yes Status: Acute Assessment and Plan: ? secondary to CVA neurology on board will follow recs Regimen as above To have formal ophthalmology evaluation as outpatient MRI with remote infarct in the right occipital lobe. (4) Hypothyroidism Current Visit: Yes Status: Acute Assessment and Plan: TSH elevated 79.1 Synthroid dose increased to 88 g for PCP to follow TFTs in 4 weeks and adjust (5) History of CVA (cerebrovascular accident) Current Visit: Yes Status: Acute Assessment and Plan: as per patient she has had hemorrhagic stroke in the past without any residual deficit CT head negative for any acute ICH (6) Obesity (BMI 30-39.9) Current Visit: Yes Status: Acute Assessment and Plan: was counseled on diet and nutrition along with exercise. (7) Tobacco abuse disorder Current Visit: Yes Status: Acute Assessment and Plan: Was counseled (8) Pre-diabetes Current Visit: Yes Status: Acute Assessment and Plan: i discussed diet and exercise with patient to have A1c followed as A1c is 5.9 (9) Hypertension Current Visit: Yes Status: Chronic Assessment and Plan: holding all BP meds for now as she has an acute stroke (10) DVT prophylaxis Current Visit: Yes Status: Acute Assessment and Plan: heparin sc - Time Spent with Patient Total time spent is greater than 50% in coordination of care (as documented) at patient's floor/unit and/or counseling patient: Internal Medicine: Result - Labs CBC & Chem 7: 08/23/18 04:05 08/23/18 04:05 - ABG Interpretation ABG results: PT/INR, D-dimer PT 11.2 Seconds (9.4-12.1) 08/22/18 14:18 Consult Discharge Plan - Plan Referrals: Odell,Ludy G, STUDIO SET UP WORKER [Primary Care Provider] - 09/03/18 1:00 pm Prescriptions: Aspirin 325 mg PO DAILY #30 tablet Atorvastatin [Lipitor] 80 mg PO HS #30 tablet Levothyroxine [Synthroid] 88 mcg PO DAILY@0630 #30 tablet Losartan [Cozaar] 100 mg PO DAILY #30 tablet (4) Hypothyroidism Qualifiers: Hypothyroidism type: acquired Qualified Code(s): E03.9 - Hypothyroidism, unspecified (9) Hypertension Qualifiers: Hypertension type: essential hypertension Qualified Code(s): I10 - Essential (primary) hypertension
--- NOTE | 2018-08-28 15:20 | Event Note ---
Date of Encounter: 08/28/18 Time of Encounter: 15:00 - Cardiology Event Note s/p ILR for cryptogenic CVA. Follow-up set with [facility] for monitoring. No further inpatient recommendations from Cardiology, will sign-off.
[2018-08-28] MEDS ORDERED: Acetaminophen 325 MG TABLET PO PRN (22:40)
[2018-08-29] MEDS: *HR* Heparin 5,000 UNIT/ML VIAL SQ SCH (06:41)
--- NOTE | 2018-08-29 09:00 | Neurology Progress Note ---
Date of Encounter: 08/29/18 Time of Encounter: 07:00 Assessment and Plan (1) Acute CVA (cerebrovascular accident) Current Visit: Yes Status: Acute Considering that she had next tension of her medullary infarct but at the same type she get an other infarct in the posterior circulation I would strongly recommend that patient should get a FERNANDA for any embolic source from the heart as she did not have any vascular stenosis in intracranial circulation Currently she is on aspirin and Plavix along with statin suggested to continue I agreed with the service associate Dr. Wisdom about loop recorder as she could be having paroxysmal A. fib as at this time we do not have any other explanation for her extended infarct FERNANDA is negative Loop recording for cryptogenic stroke Okay to transfer to the rehabilitation (2) Diplopia Current Visit: Yes Status: Acute (3) History of CVA (cerebrovascular accident) Current Visit: Yes Status: Acute Subjective Interval history: Patient continued to have weakness of the right upper and lower extremities she is also having fluctuating blood pressure was significantly low blood pressure this morning 90/50 , beside that she denies any other new symptoms since yesterday She did have an MRI of the brain which confirms new stroke as well as extension of her medullary infarct according to the report Interval increase in size of the patient's known medullary infarct now extending to the midline. 2. New acute 1 cm infarct within the right cerebellar hemisphere. 3. No acute intracranial hemorrhage. 4. Moderate chronic small vessel ischemic changes, unchanged. 5. Remote right occipital infarct. Echocardiogram and FERNANDA negative for any embolic source Objective - Constitutional Vitals: Temp Pulse Resp BP Pulse Ox 98.2 F 86 16 160/100 95 08/29/18 06:28 08/29/18 06:28 08/29/18 06:28 08/29/18 06:28 08/29/18 06:28 - Neurological Exam Sensorimotor examination: Present: intact Motor Examination: Present: grossly full strength in all extremities Motor examination - left side: 5/5: deltoids, biceps, triceps, wrist flexion, wrist extension, hip flexors, rn licensed practical, quadriceps, tibialis Anterior, toe extension (EHL), plantarflexion Sensation intact: Present: intact Reflex and gait examination: intact Mental Status Examination: Present: awake, alert, oriented to person, oriented to place, oriented to time, answers questions appropriately Cranial nerve examination: Present: PERRL, EOMI, visual mitchell intact, mastication intact, no facial asymmetry is present, no dysarthria Cerebellar examination: Present: no dysmetria Results - Laboratory Findings CBC and BMP: 08/23/18 04:05 08/23/18 04:05 Abnormal lab findings: Abnormal lab results Hct 45.4 % (35.3-44.9) H 08/23/18 04:05 BUN 21 mg/dL (6-20) H 08/23/18 04:05 POC Glucose 110 mg/dL (70-99) H 08/22/18 20:30 Hemoglobin A1c 5.9 % (-5.6) H 08/23/18 04:05 Triglycerides 195 mg/dL (< 150) H 08/23/18 04:05 Cholesterol 272 mg/dL (< 200) H 08/23/18 04:05 LDL Cholesterol, Calc 195 mg/dL (0-99) H 08/23/18 04:05 VLDL Cholesterol, Calc 39 mg/dL (< 31) H 08/23/18 04:05 HDL Cholesterol 38 mg/dL (40-59) L 08/23/18 04:05 Cholesterol/HDL Ratio 7.2 (0-4.9) H 08/23/18 04:05 TSH 79.190 mcIU/mL (0.340-5.600) H 08/23/18 04:05 Ur Squamous Epith Cells Many per lpf (None-Few) H 08/22/18 11:08 Consult Discharge Plan - Plan Referrals: Ludy Bain, GENERAL INSPECTOR [Primary Care Provider] - 09/03/18 1:00 pm Prescriptions: Aspirin 325 mg PO DAILY #30 tablet Atorvastatin [Lipitor] 80 mg PO HS #30 tablet Levothyroxine [Synthroid] 88 mcg PO DAILY@0630 #30 tablet Losartan [Cozaar] 100 mg PO DAILY #30 tablet
[2018-08-29] MEDS: 0.9 % Sodium Chloride 1,000 ML IVC SCH (09:09)
[2018-08-29] MEDS: Aspirin Enteric Coated 81 MG Tablet PO SCH (09:20)
--- NOTE | 2018-08-29 09:33 | Discharge Summary ---
- NOTES TO OUTPATIENT PROVIDER Notes to Outpatient Provider: follow up A11 it was 5.9 on 08/2018. follow TFTS in 4 weeks synthrid increased. follow up lipid panel and adjust dose of statin. follow with cardiology as OP for loop recorder. follow BP and adjust meds as needed Date of Encounter: 08/29/18 Time of Encounter: 09:31 - Discharge Diagnosis (1) Acute lacunar stroke Priority: Primary Status: Acute (2) Cerebellar stroke, acute Priority: Secondary Status: Acute (3) Diplopia Priority: Secondary Status: Acute (4) Hypothyroidism Priority: Secondary Status: Acute Qualifiers: Hypothyroidism type: acquired Qualified Code(s): E03.9 - Hypothyroidism, unspecified (5) History of CVA (cerebrovascular accident) Priority: Secondary Status: Acute (6) Obesity (BMI 30-39.9) Priority: Secondary Status: Acute (7) Tobacco abuse disorder Priority: Secondary Status: Acute (8) Pre-diabetes Priority: Secondary Status: Acute (9) Hypertension Priority: Secondary Status: Chronic Qualifiers: Hypertension type: essential hypertension Qualified Code(s): I10 - Essential (primary) hypertension (10) DVT prophylaxis Priority: Secondary Status: Acute Hospital course: Ms. Osullivan is a 57 year old female with history of hypertension, migraine, hypothyroidism and history of hemorrhagic stroke in the past without any residual deficit presented o the ED with double vision. she reports that her double vision started jamarcus day before admission but she went to sleep as she thought it was due to being tired however woke up the next morning and decided to come to the ED. she reports that her double vision has remained constant, not associated with dizziness, vision loss, N/V. she denies recent eye trauma or head trauma. has never had symptoms like this before. she also reports difficulty walking, right arm numbness and paresthesia since 2 days before admission. family at bedside also reports that they noticed a right sided facial droop and slurred speech. she denies fever, chills, recent URTI, falls, headache, N/v/d, loss of function in her extremities. in the ED Ct head did not show any acute stroke, she was given ASA 325 mg and neurology was consulted and was admitted to medicine for further evaluation. MRA head and MRI of the neck was performed and it showed Acute lacunar infarct within the left medullary pyramid. TTE and carotid doppler did not show any acute abnormalities ( discussed findings with neurologist). lipid panel followed and she was started on lipitor 80 mg for PCP to follow lipid panel in 4 weeks and adjust A1c was 5.9 she was counseled on diet and nutrition along with exercise. TSH was elevated 79.1 Synthroid dose increased to 88 g for PCP to follow TFTs in 4 weeks and adjust dose. on 08/26 as she was waiting for insurance authorization she develops worsening right-sided weakness. Neurology evaluated the patient and reported "Patient likely not a candidate for any TPA at this time as she already had a infarct on imaging studies Suggest to keep blood pressure slightly higher to avoid hypoperfusion" Stat CT head was performed which showed Possible small focus of hypodensity along the left medullary pyramid, which correlates with the known infarct in t his region. No evidence of acute hemorrhage. both neurology and i discussed with patient about need to have repeat MRI she wanted to wait and think about it over night. i discussed with patient on 08/27 AM again and she agreed to attempt MRI with medication to help her anxiety. MRI on 08/27 now with extension of the medullary stroke and new acute right cerebellar stroke along with old occipital infarct. There were no atrial fibrillation seen on telemetry monitoring throughout admission. Cardiology was consulted and she underwent FERNANDA on 08/28 which showed no LV thrombus and normal LV size and function- full report below. Hot Metal Car Operator was consulted and a loop recorder was placed on 08/28 she is to follow-up with cardiology for further evaluation of arrhythmias.Follow-up set with [facility] for monitoring by the Cardiology team. Aspirin 325 mg was changed to aspirin and Plavix which she tolerated well as per neurology recs. Blood pressure medications were reconciled she is to have continued monitoring of her blood pressure with adjustment of her blood pressure medications. Surgical boot was provided for her for the right lower extremity foot drop if ok by therapy. Is cleared by neurology and cardiology to be discharged to rehabilitation facility for further physical therapy. i discussed code status in depth with patient and she wishes to be DNR and is ok with intubation. code status changed to DNR CCA and nurse witnessed. patient desires to be transported to [facility] by family adn not ambulance. [facility] is in agreement. i discussed with patient and family at bedside that patient is to assume all responsibility/liability while being transported to [place] for rehab. FERNANDA Impressions: Normal LV size and function. No LV thrombus. The left atrium is within normal limits.No thrombus present. The LA appendage flow velocity is normal. No evidence of inter-atrial shunting noted with saline contrast. There is a grade 3, immobile layerered plaque in the descending aorta MRI on 08/27 IMPRESSION: 1. Interval increase in size of the patient's known medullary infarct now extending to the midline. 2. New acute 1 cm infarct within the right cerebellar hemisphere. 3. No acute intracranial hemorrhage. 4. Moderate chronic small vessel ischemic changes, unchanged. 5. Remote right occipital infarct. MRA head and neck: No significant abnormality of the neck vessels. Acute lacunar infarct within the left medullary pyramid. Limited MRA of the brain. Discharge discussed with: patient, family, nurse, social work, case management, microsoft infrastructure consultant Time spent discussing smoking cessation with patient: more than 10 minutes - Time Spent with Patient Total time spent providing and/or coordinating discharge services: Greater than 30 minutes (45) - Discharge Medications Prescriptions: Aspirin Enteric Coated [Aspirin EC] 81 mg PO DAILY #30 tablet. Atorvastatin [Lipitor] 80 mg PO HS #30 tablet Clopidogrel [Plavix] 75 mg PO DAILY #30 tablet Levothyroxine [Synthroid] 88 mcg PO DAILY@0630 #30 tablet Losartan [Cozaar] 50 mg PO DAILY #30 tablet Metoprolol [Lopressor] 12.5 mg PO BID #60 tablet Home Medications: Acetaminophen [Tylenol] 650 mg PO BID PRN 08/22/18 [History] Amitriptyline [Elavil] 25 mg PO HS 08/22/18 [History] Duloxetine HCl [Cymbalta] 60 mg PO DAILY 08/22/18 [History] Atorvastatin [Lipitor] 80 mg PO HS #30 tablet 08/25/18 [Rx] Levothyroxine [Synthroid] 88 mcg PO DAILY@0630 #30 tablet 08/25/18 [Rx] Aspirin Enteric Coated [Aspirin EC] 81 mg PO DAILY #30 tablet. 08/29/18 [Rx] Clopidogrel [Plavix] 75 mg PO DAILY #30 tablet 08/29/18 [Rx] Losartan [Cozaar] 50 mg PO DAILY #30 tablet 08/29/18 [Rx] Metoprolol [Lopressor] 12.5 mg PO BID #60 tablet 08/29/18 [Rx] Allergies/Adverse Reactions: Allergy/AdvReac Type Severity Reaction Status Date / Time No Known Allergies Allergy Verified 08/22/18 15:34 Date of admission: 08/25/18 07:13 Primary care physician: Ludy Bain CNP Consults: 08/22/18 11:56 Consult to Neurology [CONS] Stat Consulting Provider: Neurology [facility] Reason for Consult: diplopia, R sided weakness, prior hemorrhagic CVA Time Notified: 11:56 Call Completed: Yes 08/22/18 14:12 Consult to Case Management [CONS] Routine Comment: Consult to Physical Therapy [CONS] Routine Comment: Evaluate, develop and implement POC Reason for Consult: dispostion Does patient have active BEDREST order?: No Is patient medically & hemodynamically stable?: Yes Patient assessed for mobility or mobilized this visit?: Yes OT [Consult to Occupational Therapy] [CONS] Routine Comment: Evaluate, develop and implement POC Reason for Consult: disposition Does patient have active BEDREST order?: No Is patient medically & hemodynamically stable?: Yes Patient assessed for mobility or mobilized this visit?: Yes 08/25/18 08:24 Consult to Flight Engineer Instructor [CONS] Routine Reason for SW Consult: PT/OT RECOMMEND IP SWING. PATIENT WANTS PIKE SWING 08/27/18 11:32 Consult to Cardiology [CONS] Routine Comment: Consulting Provider: Cardiology [place] Reason for Consult: ? Atrial fib Call Completed: Yes 08/28/18 10:39 Consult to Electrophysiology (EP) [CONS] Routine Consulting Provider: Electrophysiology [facility] Reason for Consult: cryptogenic CVA Call Completed: Yes - Constitutional Vitals: Temp Pulse Resp BP Pulse Ox 98.2 F 86 16 160/100 95 08/29/18 06:28 08/29/18 06:28 08/29/18 06:28 08/29/18 06:28 08/29/18 06:28 Exam: General: Patient is alert, oriented, no acute distress, obese Head: atraumatic, normocephalic, Eye: normal appearance, PERRL, no scleral icterus, no conjunctival injection ENT: mucous membranes moist, normal external ear exam Neck: normal inspection, trachea midline, full ROM, no carotid bruits Chest: normal inspection, symmetric chest rise Respiratory: Good respiratory effort. Bilateral breath sounds are clear without wheezing, crackles, or rhonchi. Cardiovascular: Regular rate and rhythm. s1 and s2 No clicks, rubs, gallops, or murmors. Abdomen: Bowel sounds present normoactive x-4 quadrants. Abdomen is soft, nondistended. no Epigastric tenderness. No guarding or rebound. No organomegaly noted, obese musculoskeletal: Spontaneously moving all extremities. no edema, no calf tenderness Skin: warm, dry, intact. Neuro: Alert and oriented x3, speech is comprehendible. has right foot drop strength in the RLE 4/5 and 2/5 strength in the right upper extremity and 5/5 in the left extremities, mild facial droop as per family at bedside (have noticed since she has been here) however its more noticeable now . Psych: Patient's affect is normal - Patient Status Disposition: Transfer Inpatient Rehab Fac Condition: Fair Overall status at discharge: patient is progressing back to baseline - Ambulatory Orders Ambulatory Orders: Hgb A1C [CHEM] Time Frame: 3 Months, Facility: [facility], Location: Lab Lipid Panel [CHEM] Time Frame: 1 Month, Facility: [facility], Location: Lab Thyroid Stimulating Hormone [CHEM] Time Frame: 4 Weeks, Facility: [facility], Location: Lab - Discharge Instructions Follow Up With: Ludy Bain CNP [Primary Care Provider] - 09/03/18 1:00 pm Additional Instructions: ACTIVITY: Moderate activity for the next 7 days. No lifting more than 5 pounds (gallon of milk) for 1 week. BATHING /SHOWERING: Do not remove the large bandage over the site for 2 days. Do not allow the device to get wet for 7-10 days. You may bathe/shower, but do not use soap and water on the site. When bathing, keep the site dry by covering with Saran wrap or a towel. WOUND CARE: The white steri-strips will start to peel away and come off after 14 days, or your doctor will remove them after [address] into or on top of the incision. Do not use cotton swabs. Do not use any antibiotic ointment or Vitamin E on the site. REMINDERS: Notify security personnel at the airport that you have a device before you go through airport security screening. When at places with security monitors, such as a grocery store, do not linger near these monitors. It is fine to walk past them in a normal manner. Refer to your owners manual for more specific directions. CARRY YOUR IDENTIFICATION CARD WITH YOU AT ALL TIMES Return to work as instructed per physician Resume driving as instructed per physician Keep all scheduled follow up appointments Resume medications as instructed Contact [facility] ( ) if: You develop excessive bleeding from insertion or wound site not controlled by applying pressure You develop a fever greater than 101 degrees Fahrenheit Your incision becomes reddened at or around the site Your incision develops yellowish or greenish drainage or development of white pimple-like bumps You experience excessive pain You experience muscle switching If you experience chest pain, shortness of breath, dizziness, or extreme tiredness, stop the activity and rest. Please notify [facility] office if you experience any of these symptoms and they are not relieved by rest please call 911! - Diet and Activity Activity: as per physical therapy, increase activity as tolerated Diet: diabetic diet, low salt diet
--- NOTE | 2018-08-29 09:47 | Physician Discharge Referral ---
[facility] Referral Info Provider in Charge after Transfer: PCP Institutional Level of Care: Skilled - Diagnosis (1) Acute lacunar stroke Status: Acute (2) Cerebellar stroke, acute Status: Acute (3) Diplopia Status: Acute (4) Hypothyroidism Status: Acute (5) History of CVA (cerebrovascular accident) Status: Acute (6) Obesity (BMI 30-39.9) Status: Acute (7) Tobacco abuse disorder Status: Acute (8) Pre-diabetes Status: Acute (9) Hypertension Status: Chronic (10) DVT prophylaxis Status: Acute - Transfer Medications Prescriptions: Aspirin Enteric Coated [Aspirin EC] 81 mg PO DAILY #30 tablet. Atorvastatin [Lipitor] 80 mg PO HS #30 tablet Clopidogrel [Plavix] 75 mg PO DAILY #30 tablet Levothyroxine [Synthroid] 88 mcg PO DAILY@0630 #30 tablet Losartan [Cozaar] 50 mg PO DAILY #30 tablet Metoprolol [Lopressor] 12.5 mg PO BID #60 tablet Home Medications: Acetaminophen [Tylenol] 650 mg PO BID PRN 08/22/18 [History] Amitriptyline [Elavil] 25 mg PO HS 08/22/18 [History] Duloxetine HCl [Cymbalta] 60 mg PO DAILY 08/22/18 [History] Atorvastatin [Lipitor] 80 mg PO HS #30 tablet 08/25/18 [Rx] Levothyroxine [Synthroid] 88 mcg PO DAILY@0630 #30 tablet 08/25/18 [Rx] Aspirin Enteric Coated [Aspirin EC] 81 mg PO DAILY #30 tablet. 08/29/18 [Rx] Clopidogrel [Plavix] 75 mg PO DAILY #30 tablet 08/29/18 [Rx] Losartan [Cozaar] 50 mg PO DAILY #30 tablet 08/29/18 [Rx] Metoprolol [Lopressor] 12.5 mg PO BID #60 tablet 08/29/18 [Rx] Allergies/Adverse Reactions: Allergy/AdvReac Type Severity Reaction Status Date / Time No Known Allergies Allergy Verified 08/22/18 15:34 - Respiratory Orders Smoking Cessation: Smoking cessation has been advised. For more information, call the [place] Tobacco Quit Line at 8-841-LXMA-NOW. - Mobility Orders Ambulate - Rehabiliation Orders Rehab Orders: Evaluation for Physical Therapy, Evaluation for Occupational Therapy - Diet Orders Cardiac (diabetic) CERTIFICATION: I certify that the transfer of the above named patient to an Extended Care Facility is necessary for the continuing treatment of the diagnosis listed. The above information is true and accurate reflection of patient's current condition. Confidential - Redisclosure prohibited without a patient's written consent.
[2018-08-29 10:41] VITALS: BP 149/100
== END 2018-08-29 14:47 | DRG 42 ==
LOC: 3BNU 09:18 → EMEROOARM 09:18 → 3BNU 13:38 → SUATTDRO 08-25 07:13
PROVIDERS: ADMIT Internal Medicine; ATTEND Internal Medicine